=== PATIENT | male | born 1955 | race Caucasian/White ===

== ENCOUNTER 2017-11-18 07:41 | Emergency (ER) | payer BC, MEDICARE ==
[2017-11-18] MEDS ORDERED: methylPREDNISolone 125 MG* 2 ML VIAL IV ONE (07:56)
[2017-11-18] MEDS ORDERED: Albuterol/Ipratropium NEB.SOL* Albuterol 2.5 MG/Ipratropium 0.5 MG 3 ML INH PRN (07:56)
[2017-11-18] MEDS ORDERED: Albuterol/Ipratropium NEB.SOL* Albuterol 2.5 MG/Ipratropium 0.5 MG 3 ML ONE (08:14)
[2017-11-18 08:20] LABS: ABS Basophils 0.1 10^3/ul (0-0.2); ABS Eosinophils 0.1 10^3/ul (0-0.6); ABS Monocytes 0.7 10^3/ul (0-0.8); ABS Neutrophils 6.8 10^3/ul (1.5-7.7); ABS Nucleated RBC 0 10^3/ul; Eosinophil % 1.4 % (0-6); Hematocrit 43 % (42-52); Hemoglobin 14.1 g/dl (14.0-18.0); Lymphocyte % 11.9 % (25-47); Mean Corpuscular HGB Conc 33 g/dl (31-36); Mean Corpuscular Hemoglobin 28 pg (27-31); Mean Corpuscular Volume 86 fL (80-94); Nucleated Red Blood Cells % 0; Platelet Count 253 10^3/ul (150-450); Red Blood Count 4.98 10^6/ul (4.0-5.4); Red Cell Distribution Width 14 % (10.5-15); White Blood Count 8.7 10^3/ul (3.5-10.8)
[2017-11-18 08:24] LABS: INR 0.88 (0.77-1.02)
[2017-11-18 08:35] LABS: EGFR Non-African American 92.9 (>60)
--- NOTE | 2017-11-18 09:45 | RAD ---
Indication: Shortness of breath. Single frontal view of the chest performed at 0825 hours was reviewed. Comparison is made with previous exam dated July 20, 2015. No mediastinal shift is noted. Heart is of normal size and configuration. Lung aponte demonstrates right mid lung atelectasis in left midlung atelectasis. IMPRESSION: NO ACTIVE CARDIOPULMONARY DISEASE IS NOTED.
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
[2017-11-18 11:22] VITALS: BP 143/84
== END 2017-11-18 13:30 | disposition home or self-care (01) ==
LOC: ED 07:41
DX: J44.1 Chronic obstructive pulmonary disease with (acute) exacerbation (principal); E11.9 Type 2 diabetes mellitus without complications; K21.9 Gastro-esophageal reflux disease without esophagitis; Z87.891 Personal history of nicotine dependence
CPT/HCPCS: 36415; 71045; 80053; 82550; 82553; 82803; 83605; 83880; 84484; 85025; 85610; 86140; 87040; 93005; 96374; 99284; A9270-GY; J2930

== ENCOUNTER 2018-07-21 12:47 | Observation (INO) | payer BC, MEDICARE ==
[2018-07-21] MEDS ORDERED: methylPREDNISolone 125 MG* 2 ML VIAL IV ONE (13:09)
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
[2018-07-21 13:32] LABS: ABS Basophils 0.1 10^3/ul (0-0.2); ABS Eosinophils 0.2 10^3/ul (0-0.6); ABS Lymphocytes 1.8 10^3/ul (1.0-4.8); ABS Monocytes 1.1 10^3/ul (0-0.8); ABS Neutrophils 9.3 10^3/ul (1.5-7.7); ABS Nucleated RBC 0 10^3/ul; Eosinophil % 1.3 %; Hematocrit 46 % (42-52); Hemoglobin 14.8 g/dl (14.0-18.0); Lymphocyte % 14.2 %; Mean Corpuscular HGB Conc 32 g/dl (31-36); Mean Corpuscular Hemoglobin 28 pg (27-31); Mean Corpuscular Volume 86 fL (80-94); Mean Platelet Volume 8.1 fL (7.4-10.4); Nucleated Red Blood Cells % 0.1; Platelet Count 283 10^3/ul (150-450); Red Blood Count 5.34 10^6/ul (4.00-5.40); Red Cell Distribution Width 15 % (10.5-15); White Blood Count 12.4 10^3/ul (3.5-10.8)
[2018-07-21 14:04] LABS: Albumin 4.3 g/dL (3.2-5.2); Albumin/Globulin Ratio 1.2 (1-3); BUN/Creatinine Ratio 11.9 (8-20); Calcium 9.5 mg/dL (8.6-10.3); EGFR African American 90.6 (>60); EGFR Non-African American 74.9 (>60); Globulin 3.7 g/dL (2-4); Potassium 3.7 mmol/L (3.5-5.0); Total Bilirubin 0.6 mg/dL (0.2-1.0)
[2018-07-21] MEDS: Albuterol 2.5 MG/3 ML NEB.SOL* (0.083%) INH SCH ×3 (14:38→15:38)
[2018-07-21] MEDS ORDERED: cefTRIAXone(*) 1 GM in NS 0.9% 50 ML* 50 ML IVPB ONE (16:36)
[2018-07-21] MEDS ORDERED: Azithromycin TAB* 250 MG PO ONE (16:36)
[2018-07-21] MEDS ORDERED: Dextrose 50% Syringe 50 ML* 25 GM/50 ML SYRINGE IV PUSH PRN (17:09)
[2018-07-21] MEDS ORDERED: Albuterol 2.5 MG/3 ML NEB.SOL* (0.083%) INH PRN (17:09)
[2018-07-21] MEDS ORDERED: NS 0.9% 1000 ML** 1,000 ML IV SCH (17:15)
[2018-07-21] MEDS ORDERED: NS 0.9% 1000 ML** 1,000 ML IV ONE (17:19)
[2018-07-21] MEDS ORDERED: Cefepime 2 GM in Dextrose(*) 2 GM/50 ML BAG IV SCH (18:00)
[2018-07-21] MEDS ORDERED: Azithromycin IV(*) 500 MG in NS 0.9% 250 ML* 250 ML IVPB SCH (18:00)
[2018-07-21] MEDS ORDERED: predniSONE TAB* 20 MG PO SCH (18:00)
[2018-07-21 18:30] LABS: Influenza A Molecular NEGATIVE (Negative); Influenza B Molecular NEGATIVE (Negative)
[2018-07-21 18:38] LABS: Activated Partial Thrombo Time 28.4 seconds (26.0-36.3); INR 1.09 (0.77-1.02)
[2018-07-21 18:50] LABS: EGFR African American 104.8 (>60); EGFR Non-African American 86.6 (>60)
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
[2018-07-21] MEDS: predniSONE TAB* 20 MG PO SCH (20:24)
[2018-07-21] MEDS: Heparin VIAL(*) 5000 UNITS/ML VIAL (FIVE THOUSAND) SUBCUT SCH (20:26)
[2018-07-21] MEDS: Mometasone/Formoter 200/5 MDI INH SCH ×2 (21:07→21:25)
[2018-07-21] MEDS: Cefepime 2 GM in Dextrose(*) 2 GM/50 ML BAG IV SCH (21:26)
[2018-07-21 22:39] LABS: Urine Appearance Clear; Urine Bilirubin Negative (Negative); Urine Blood Negative (Negative); Urine Color Straw; Urine Glucose 3+(>=500 mg/dL) (Negative); Urine Ketones 1+ (Negative); Urine Nitrite Negative (Negative); Urine Protein Negative (Negative); Urine Specific Gravity 1.021 (1.010-1.030); Urine Urobilinogen Negative (Negative)
[2018-07-21] MEDS: Albuterol/Ipratropium NEB.SOL* Albuterol 2.5 MG/Ipratropium 0.5 MG 3 ML INH SCH (23:01)
[2018-07-22] MEDS: Albuterol/Ipratropium NEB.SOL* Albuterol 2.5 MG/Ipratropium 0.5 MG 3 ML INH SCH (03:45)
[2018-07-22] MEDS: Heparin VIAL(*) 5000 UNITS/ML VIAL (FIVE THOUSAND) SUBCUT SCH (04:01)
[2018-07-22 06:19] LABS: ABS Basophils 0 10^3/ul (0-0.2); ABS Eosinophils 0 10^3/ul (0-0.6); ABS Lymphocytes 0.8 10^3/ul (1.0-4.8); ABS Monocytes 0.3 10^3/ul (0-0.8); ABS Neutrophils 7.8 10^3/ul (1.5-7.7); ABS Nucleated RBC 0 10^3/ul; Eosinophil % 0 %; Hematocrit 38 % (42-52); Hemoglobin 12.7 g/dl (14.0-18.0); Lymphocyte % 8.8 %; Mean Corpuscular HGB Conc 33 g/dl (31-36); Mean Corpuscular Hemoglobin 28 pg (27-31); Mean Corpuscular Volume 85 fL (80-94); Mean Platelet Volume 7.7 fL (7.4-10.4); Nucleated Red Blood Cells % 0; Platelet Count 243 10^3/ul (150-450); Red Blood Count 4.51 10^6/ul (4.00-5.40); Red Cell Distribution Width 15 % (10.5-15); White Blood Count 8.9 10^3/ul (3.5-10.8)
[2018-07-22 06:26] LABS: INR 1.08 (0.77-1.02)
[2018-07-22 06:37] LABS: Calcium 8.5 mg/dL (8.6-10.3); EGFR African American 118.5 (>60)
[2018-07-22] MEDS: Mometasone/Formoter 200/5 MDI INH SCH (08:23)
[2018-07-22] MEDS: Cefepime 2 GM in Dextrose(*) 2 GM/50 ML BAG IV SCH (08:51)
[2018-07-22] MEDS: predniSONE TAB* 20 MG PO SCH (08:52)
[2018-07-22] MEDS: Insulin LISPRO* 1 UNITS UNIT SUBCUT SCH ×2 (08:52→12:15)
[2018-07-22] MEDS ORDERED: Azithromycin IV(*) 500 MG in NS 0.9% 250 ML* 250 ML IVPB SCH (09:00)
[2018-07-22] MEDS ORDERED: Pantoprazole TAB * 40 MG TAB PO SCH (09:00)
[2018-07-22 11:44] VITALS: BP 141/63
--- NOTE | 2018-07-22 13:53 | DS ---
CC: Dr. Jean Stewart; Dr. Viri Messer DATE OF ADMISSION: 07/21/2018. DATE OF DISCHARGE: 07/22/2018. PRINCIPAL DIAGNOSIS: COPD exacerbation. SECONDARY DIAGNOSES: 1. COPD on 3 liters chronically. 2. History of alpha-1 antitrypsin deficiency. 3. GERD. 4. Diabetes. 5. History of recurrent pulmonary pseudomonas infection. 6. Hypertension. MEDICATIONS: New medications prescribed at discharge: 1. Augmentin 875 mg p.o. b.i.d. for 7 days. 2. Prednisone taper over 12 days. Remaining medications are unchanged as follows: 1. Omeprazole 20 mg p.o. daily. 2. Albuterol nebs q.i.d. as needed. 3. Glipizide 5 mg p.o. daily. 4. Losartan 50 mg p.o. daily. 5. Metformin 1,000 mg p.o. b.i.d. 6. Lasix 20 mg p.o. daily. 7. Advair one puff inhaled b.i.d. 8. Spiriva one cap inhaled daily. 9. Prolastin 1,000 mg IV weekly. HOSPITAL COURSE: This is a 62-year-old male with a past medical history of COPD with alpha-1 antitrypsin deficiency on 3 liters chronically who presented to the emergency room with acute onset of shortness of breath. The patient states he was having worsening productive cough with increased shortness of breath when he acutely began gasping for air on the day of admission, grabbed his oxygen and his sat machine was measuring at 83 percent. He asked his family to bring him in to the emergency room for further evaluation. On admission, the patient had a white count of 12.4. His flu was negative. His pneumococcal antigen and legionella antigen were negative. He has a low grade temperature of 99.1 and his chest x-ray on admission read findings consistent with emphysema. On admission, the patient was started on IV fluids. We was given Solu- Medrol. He was continued on Azithromycin and Ceftriaxone. On the day of discharge, the patient states he feels great. He feels like he is back to his baseline. He has been ambulating, tolerating p.o. He still has a productive cough which we will obtain a sputum sample for. 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 Hensley, was alternating antibiotics every month where he has been on Ciprofloxacin for a month which he is currently taking, he just started it yesterday the and then he rotates to Clarithromycin and then he rotates to Amoxicillin. He has since then plugged in with Dr. Messer who recommended that he stop this antibiotic regimen. He did and he felt worse , so he went back on it. The patient is scheduled to see Dr. Messer as an outpatient scheduled for August. I discussed that we discussed with Dr. Messer the monthly antibiotic regimen does not make sense to prevent recurrent pulmonary infections, specifically against pseudomonas. I am going to get a sputum sample prior to his discharge, but will send him home on Augmentin b.i.d. for a total of seven days and continue him on a Prednisone taper. We discussed following up with Dr. Messer sooner if his symptoms worsen, but recommended that he stop his monthly antibiotic medications. The patient is agreeable to this. His is going to pick him up and he will go home under the care of his . Follow up: Sputum Culture PHYSICAL EXAMINATION: Vitals on discharge: Temperature 97.3, pulse rate 90, respiratory rate 14, oxygen saturation 98 percent on three liters which is his baseline, blood pressure 134/75. Respiratory exam: Diminished breath sounds, no wheezes, rhonchi, or rales, no increased work of breathing. The patient is to increase his activity as tolerated and as mentioned to return to the emergency room if he has worsening shortness of breath or hypoxia. PATIENT TIME: Greater than 45 minutes were spent on this discharge summary, more than half that time was spent in direct patient contact. [id number]/[facility] #: [id number] [place]
== END 2018-07-22 13:56 | disposition home or self-care (01) ==
LOC: ED 12:47 → INTOOBSV 17:05 → MED 17:05
PROVIDERS: ADMIT Internal Medicine; ATTEND Pediatrics
DX: J44.1 Chronic obstructive pulmonary disease with (acute) exacerbation (principal); K21.9 Gastro-esophageal reflux disease without esophagitis; E11.9 Type 2 diabetes mellitus without complications; I10 Essential (primary) hypertension; B96.5 Pseudomonas (aeruginosa) (mallei) (pseudomallei) as the cause of diseases classified elsewhere; Z87.891 Personal history of nicotine dependence
CPT/HCPCS: 36415; 71046; 80048; 80053; 81003; 82565; 83605; 85025; 85610; 85730; 87040; 87070; 87077; 87186; 87205; 87899; 93005; 94640; 96365; 96366; 96372; 96375; 99283; A9270-GY; J0456; J0692; J0696; J1644; J2930; J7512

== ENCOUNTER 2019-02-14 09:52 | Emergency (ER) | payer BC, MEDICARE ==
--- OUTSIDE RECORDS SUMMARY | 2019-02-14 10:07 | XMS REPORT | Continuity of Care Document ---
:1955 External Reference #:[id number] Author Name Valentine Thomas Care Team Providers Name Role Phone Tia Wen MD Care Team Information Sales Officer Unavailable Jean Stewart MD Primary Care Physician Unavailable Payers Date Identification Numbers Payment Provider Subscriber Policy Number: [id number] [facility] Patricio Underwood PayID: [id number] [address] [address] [place] [address] Effective: 2016 Policy Number: [id number] 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 Tobacco Use Start: Unknown Former Cigarette Smoker Not quite 1 ppd, 35 End: Unknown 1 Pack Daily years Smoking Status Reviewed: 02/05/19 Former Cigarette Smoker Not quite 1 ppd, 35 1 Pack Daily years ETOH Use Drinks Alcoholic Beverages Rarely Tobacco Use Start: Unknown Patient is a former End: Unknown smoker Recreational Drug Use Denies Drug Use Exercise Type/Frequency Exercises sporadically Exercise Type/Frequency Walks daily Sometimes short, sometimes long walks Allergies, Adverse Reactions, Alerts Active Allergies Reaction Severity Comments Date Latex 12/30/2017 Medications Active Medications SIG Qnty Indications Ordering Date Provider Anoro Ellipta 1 inhalation daily 3units Viri Messer, 08/25/2018 62.5-25mcg/Inh Aerosol Albuterol Sulfate inhale q4hr as 270ml Viri Messer, 02/10/2018 needed sob (2.5mg/3ML) 0.083% Nebulizer Oxygen please use o2 at 1units J44.9 Viri Messer, 01/21/2018 Misc 2l/min during MD exertion, pls provide pt with portable o2 concentrator Nebusal 1 unit twice daily 240ml J44.9 Viri Messer, 12/30/2017 3% Nebulizer Atorvastatin Calcium EstebanasBrannon, 20mg Tablets Furosemide 1 by mouth every day Unknown 20mg Tablets Ventolin HFA 2 puffs by mouth 54gm Viri Messer, four times a day as 108(90Base) mcg/Act needed Aerosol Prolastin-C 60mg per kg infusion Unknown 1000mg weekly Solution Rec Omeprazole 20 mg. 1 by mouth Gui, every day MD Viri Metformin HCL take one tablet by Gui, 1000mg mouth twice a day MD Viri Tablets History Medications Losartan Potassium Take One Tablet Unknown - 50mg By Mouth Every 02/04/2019 Tablets Day Glipizide ER Take One Tablet Unknown - 5mg Tablets ER By Mouth Every 08/10/2018 24HR Day Advair Diskus inhale one dose 60units Viri Messer, - 500-50mcg/Dose by mouth twice MD 02/04/2019 Aerosol daily Spiriva Respimat 1 puff one time Unknown - per day 02/04/2019 Ciprofloxacin HCL Take One Tablet Unknown - 750mg By Mouth one 01/27/2018 Tablets time per Day Clarithromycin ER Take One Tablet Unknown - 500mg By Mouth Every 01/27/2018 Tablets ER 24HR Day Amoxicillin/Clavulanate Take One Tablet Unknown - Potassium By Mouth Twice A 08/10/2018 875-125mg Tablets Day Albuterol Sulfate As needed Unknown - 02/10/2018 Vital Signs Date Vital Result Comment 02/05/2019 1:21pm Height 66 inches 5'6" Weight 172.50 lb Heart Rate 100 /min BP Systolic Sitting 126 mmHg Lue regular cuff BP Diastolic Sitting 74 mmHg Lue regular cuff Respiratory Rate 16 /min O2 % BldC Oximetry 96 % 3LPM BMI (Body Mass Index) 27.8 kg/m2 08/11/2018 1:34pm Height 66 inches 5'6" Weight 188.00 lb Heart Rate 100 /min BP Systolic Sitting 142 mmHg Lue regular cuff BP Diastolic Sitting 80 mmHg Lue regular cuff Respiratory Rate 16 /min O2 % BldC Oximetry 96 % 3LPM BMI (Body Mass Index) 30.3 kg/m2 02/10/2018 1:38pm Height 66 inches 5'6" Weight 186.00 lb Heart Rate 108 /min BP Systolic Sitting 150 mmHg BP Diastolic Sitting 94 mmHg Respiratory Rate 16 /min O2 % BldC Oximetry 96 % on 3 lpm BMI (Body Mass Index) 30.0 kg/m2 12/30/2017 12:36pm Height 66 inches 5'6" Weight 183.25 lb Heart Rate 100 /min BP Systolic Sitting 126 mmHg Lue reg cuff BP Diastolic Sitting 88 mmHg Lue reg cuff Respiratory Rate 22 /min O2 % BldC Oximetry 96 % On Ra BMI (Body Mass Index) 29.6 kg/m2 Neck Circumference in inches 18.5 Results Test Date Facility Test Result H/L Range Note Inr/Protime [facility] Inr 1.09 High 0.77-1.[address] [place] [address] [phone] Laboratory test [facility] Partial Thrombo 28.4 seconds Normal 26.0-36.3 finding [address] [place] [address] [phone] Creatinine [facility] Creatinine 0.89 mg/dL Normal 0.67-1.[address] [place] [address] [phone] Egfr Non- 86.6 >60 Egfr 104.8 >60 1 Laboratory test 07/21/2018 [facility] Lactic Acid 1.9 mmol/L Normal 0.5-2.[address] [place] [address] [phone] Urinalysis 07/21/2018 [facility] Urine Color Straw Profile [address] [place], [place] [id number] [phone] Urine Appearance Clear Urine Specific [place] 1.021 Normal 1.010-1.030 Urine pH 5.0 Normal 5-9 Urine Urobilinogen Negative Negative Urine Ketones 1+ Abnormal Negative Urine Protein Negative Negative Urine Leukocytes Negative Negative Urine Blood Negative Negative Urine Nitrite Negative Negative Urine Bilirubin Negative Negative Urine Glucose 3+(>=500 mg/dL) Abnormal Negative Laboratory test 07/21/2018 [facility] Legionella SEE RESULT [address] [place] [address] [phone] Blood Culture SEE RESULT BELOW 4 Laboratory test 07/21/2018 [facility] Rapid Influenza SEE RESULT [address] [place] [address] [phone] 1 Because ethnic data is not always readily available, this report includes an eGFR for both -Americans and non- Americans. The National Kidney Disease Education Program (NKDEP) does not endorse the use of the MDRD equation for patients that are not between the ages of 18 and 70, are , have extremes of body size, muscle mass, or nutritional status, or are non- or non-. According to the National Kidney Foundation, irrespective of diagnosis, the stage of the disease is based on the level of kidney function: Stage Description GFR(mL/min/1.73 m(2)) 1 Kidney damage with normal or decreased GFR 90 2 Kidney damage with mild decrease in GFR 60-89 3 Moderate decrease in GFR 30-59 4 Severe decrease in GFR 15-29 5 Kidney failure <15 (or dialysis) 2 [facility] Severe Sepsis and Septic Shock Management Bundle Measure requires all lactic acids initially measuring >2.0 mmol/L be repeated. 3 SEE RESULT BELOW Name: DELFINO UNDERWOOD : [address]: Tia Wen MD Acct: [id number] Unit: [id number] AGE: 62 Location: [facility] 413- Re07/21/18 SEX: M Status: ADM IN SPEC: [id number] BECKA: 07/21/18 [facility] DR: Norm Huber NP REQ: [id number] RECD: 07/21/18 STATUS: BINH GAYTAN DR: Jean Odom MD _ SOURCE: URINE SPDESC: ORDERED: Legion Ur Ag, S.pneumo Ur Ag Procedure Result Reported Site Legionella Urine Antigen Final 07/21/18- 2301 ML Organism 1 Negative Legionella Antigen Antigen testing by enzyme immunoassay Strep. Pneumonia Urine Antigen Final 07/21/18- 2301 ML Organism 1 Negative S. pneumo Antigen Antigen testing by enzyme immunoassay * - [facility] . END OF REPORT DEPARTMENT OF PATHOLOGY, [address] [place] [address] Zackery Miranda M.D. Director [facility] # [id number] 4 SEE RESULT BELOW Name: DELFINO UNDERWOOD : [address]: Joy Ann DO Acct: [id number] Unit: [id number] AGE: 62 Location: [facility] 413-02 Re07/21/18 Dis: 07/22/18 SEX: M Status: DIS Daryl SPEC: [id number] BECKA: 07/21/18 [facility] DR: Norm Huber NP REQ: [id number] RECD: 07/21/18 STATUS: BINH GAYTAN DR: Jean Odom MD _ SOURCE: BLOOD,VENO SPDESC: ORDERED: Blood Cult Procedure Result Reported Site Aerobic Culture Bottle Final 07/26/18- 1823 ML No Growth Day 5 Anaerobic Culture Bottle Final 07/26/18- 1821 ML No Growth Day 5 * ML - [facility] . END OF REPORT DEPARTMENT OF PATHOLOGY, [address] [place] [address] Zackery Miranda M.D. Director [facility] # [id number] 5 SEE RESULT BELOW Name: DELFINO UNDERWOOD : [address]: Shashank Odom MD Acct: [id number] Unit: [id number] AGE: 62 Location: ED Re07/21/18 SEX: M Status: REG ER SPEC: [id number] BECKA: 07/21/[address]: Norm Huber NP REQ: [id number] RECD: 07/21/18 STATUS: BINH GAYTAN DR: Jean Odom MD _ SOURCE: JACEAna [facility]: ORDERED: Flu A B Request Procedure Result Reported Site Rapid Influenza A B Request Final 07/21/181814 ML Specimen received for Influenza A/B Molecular testing * ML - [facility] . END OF REPORT DEPARTMENT OF PATHOLOGY, [address] [place] [id number] Zackery Miranda M.D. Director [facility] # [id number] Procedures Date Code Description Status 01/28/2018 85464 Diffusing Capacity Completed 01/28/2018 43142 Plethysmography Determination Lung Volumes & Per Airway Completed Resist 01/28/2018 78939 Pulmonary Function><Bronchodil Completed 06/18/2012 80181 EKG, Interpretation Only Completed 08/16/2008 45416 ECHO Transthorasic Realtime 2D W Doppler & Color Flow Hosp Completed Encounters Type Date Location Provider Dx Diagnosis Office Visit 02/05/2019 [facility]ology [facility] Mag Tucker.9 Chronic obstructive 1:30p Sleep Services Of pulmonary disease, Candle Molder Hand unspecified R09.02 Hypoxemia E88.01 Jsqur-6-cghjucuozll deficiency Office Visit 08/11/2018 1:45p Pulmonology And Viri Kimble44.9 Chronic Sleep Services Of MD Gui obstructive [employer] pulmonary disease, unspecified R09.02 Hypoxemia E88.01 Kikqm-2-gmdflnbbpjd deficiency Office Visit 07/22/2018 11:28a [facility] Joy J44.1 Chronic Assoc,pc ChemaDO obstructive Hospitalists pulmonary disease w (acute) exacerbation Office Visit 07/21/2018 11:28a [facility] Dallin J44.1 Chronic Assoc,pc [place] obstructive Hospitalists N.P. pulmonary disease w (acute) exacerbation R09.02 Hypoxemia Office Visit 02/10/2018 2:00p Pulmonology And Ana SFanny J44.9 Chronic Sleep Services Of Angie Neves obstructive Candle M[employer] Hand pulmonary disease, unspecified E88.01 Blucs-6-wktwwvyekty deficiency R09.02 Hypoxemia Office Visit 12/30/2017 1:00p Pulmonology And Viri J44.9 Chronic Sleep Services Of MD Gui obstructive [employer]le M[employer] pulmonary disease, unspecified E88.01 Empwh-4-npgoguofgaz deficiency R09.02 Hypoxemia Z12.2 Encntr screen for malignant neoplasm of respiratory organs Office Visit 07/22/2015 2:19p [facility] Aan Curry J44.1 Chronic Assoc,pc Ana Neves.Taylor obstructive Hospitalists pulmonary disease w (acute) exacerbation E11.8 Type 2 diabetes mellitus with unspecified complications E88.01 Uyrsf-4-txzvwkxhrwi deficiency Office Visit 07/21/2015 2:18p [facility] Ana Curry J44.1 Chronic Assoc,brandee Neves N.P. obstructive Hospitalists pulmonary disease w (acute) exacerbation E11.8 Type 2 diabetes mellitus with unspecified complications E88.01 Bjgae-2-xlqtdisxchx deficiency Office Visit 07/20/2015 [facility] Dallin J44.1 Chronic 2:17p Assoc,brandee Huber N.P. obstructive Hospitalists pulmonary disease w (acute) exacerbation E11.8 Type 2 diabetes mellitus with unspecified complications E88.01 Vlxhw-4-rkvuocmbapo deficiency Office Visit 09/27/2012 [facility] Real 277.6 Circulating 10:24a Assoc,brandee Malhotra M.D. Enzyme Deficiency Hospitalists Other 492.8 Emphysema Other 466.0 Bronchitis Acute 300.00 Anxiety State Unspec [facility] Other Assoc,brandee Ray M.D. 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 Obstructive Hospitalists Chronic W/Acute Exacerbation 273.4 Eluuu-8-Xaqkpgdtmaz Def Office Visit 06/15/2012 2:[facility]p [facility], 491.21 Bronchitis Assoc,pc N.P. Obstructive Hospitalists Chronic W/Acute Exacerbation 273.4 Xqvkg-0-Txslghlxhop Def Plan of Treatment Future Appointment(s):08/17/2019 3:30 pm - Viri Messer MD at [facility]02/05/2019 - Viri Messer MDJ44.9 Chronic obstructive pulmonary disease, unspecifiedFollow up:6 months , PFTs fjckbW16.02 EodmmtuleB05.01 Rtszq-0-omobfirhcnt deficiency
--- OUTSIDE RECORDS SUMMARY | 2019-02-14 10:07 | XMS REPORT | Summary of Care ---
:1955 Author Organization [facility] Address [address] [place] [address] Care Team Providers Name Role Phone Jean Stewart MD Primary Care Provider Reason for Visit Reason Comments Nausea Nausea , abdominal pain,weight loss,and extreme fatigue. Diabetes Follow up. Last A1C 8.2 on 12/30/2018 Encounter Details Date Type Department Care Team Description 02/03/2019 Office Visit [facility] Jean Stewart Unexplained weight loss (Primary Dx); Andi Singh MD Epigastric pain; [address] [facility] Essential hypertension; [place], [place] [id number] [place] [id number] Bronchiectasis without complication ([facility]); [phone] Panlobular emphysema ([facility]); [phone] Controlled type 2 diabetes mellitus without complication, without long-term current use of insulin ([facility]) (Fax) Allergies Active Allergy Reactions Severity Noted Date Comments Latex Hives 02/23/2010 documented as of this encounter (statuses as of 02/03/2019) Medications Medication Sig Dispensed Refills Start End Date Status Date proteinase by Intravenous 0 Active (PROLASTIN-C) 1000 route EVERY MG Intravenous SATURDAY. Recon Soln Erythromycin 2 % 1 Appl by Apply 60 g 4 Active Apply externally externally 7 Gel route EVERY BEDTIME. Apply to face at bedtime Tadalafil (CIALIS) Take 1 Tab by 3 Tab 5 Active 20 MG Oral Tab mouth NEEDED 7 (sex). albuterol 3 mL by 180 mL 5 Active (PROVENTIL, Inhalation-SVN 7 VENTOLIN) (2.5 route EVERY MG/3ML) 0.083% FOUR HOURS Inhalation Nebu NEEDED SolnIndications: (shortness of Bronchiectasis breath). without complication (HCC) metFORMIN HCL 1000 Take 1 Tab by 180 Tab 1 Active MG Oral Tab mouth TWICE 9 DAILY. Omeprazole delayed Take 20 mg by 90 Cap 3 Active rel cap 20 MG Oral mouth DAILY. 9 CAPSULE DELAYED RELEASE atorvastatin Take 1 Tab by 90 Tab 3 Active (LIPITOR) 20 MG mouth DAILY. 9 Oral Tab lisinopril Take 1 Tab by 90 Tab 0 12/25/19 Active (PRINIVIL, ZESTRIL) mouth DAILY. 9 20 20 MG Oral Tab Take 1 tablet daily. umeclidinium-VILANT Take 1 INHL by 60 Each 4 Active WINSOME (ANORO inhalation 9 ELLIPTA) 62.5-25 DAILY. MCG/INH Inhalation AEROSOL POWDER, BREATH ACTIVATED tiotropium (SPIRIVA Take 1 INHL by 90 Cap 3 02/04/20 Discontinued HANDIHALER) 18 MCG inhalation 8 19 (Provider Inhalation Cap DAILY. Discontinued) fluticasone-salmete Take 1 INHL by 180 Each 3 02/04/20 Discontinued rol diskus (ADVAIR inhalation 8 19 DISKUS) 500-50 TWICE DAILY. MCG/DOSE Inhalation AEROSOL POWDER, BREATH ACTIVATED losartan (COZAAR) Take 1 Tab by 90 Tab 5 02/04/20 Discontinued 50 MG Oral Tab mouth DAILY. 9 19 (Provider Discontinued) furosemide (LASIX) Take 1 Tab by 90 Tab 3 02/04/20 Discontinued 20 MG Oral Tab mouth DAILY. 9 19 (Provider Discontinued) documented as of this encounter (statuses as of 02/03/2019) Active Problems Problem Noted Date Essential hypertension 11/14/2017 Bronchiectasis without complication 06/08/2016 Overview: [facility] Attention- Marcelina Airvo at 30LPM via [employer] Adult Cannula (p) [phone] (f) [phone] Pseudomonas respiratory infection 09/01/2015 COLD (chronic obstructive lung disease) 09/01/2015 Controlled type 2 diabetes mellitus without complication, without 11/21/2011 long-term current use of insulin Pseudomonas aeruginosa infection 02/15/2011 Chronic bronchitis 01/04/2011 COPD (chronic obstructive pulmonary disease) 10/17/2007 Overview: Xourprl-Ztltzt-vbbzk re-sent/faxed on 10/07/12 3LPM Gurdeepsoledad- evaluating for portability 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 10/17/2007 documented as of this encounter (statuses as of 02/03/2019) Resolved Problems Problem Noted Date Resolved Date Tobacco abuse 10/17/2007 01/04/2011 documented as of this encounter (statuses as of 02/03/2019) Immunizations Name Administration Dates Next Due Influenza (IM) Preservative Free 04/23/2018, 04/18/2016, 04/29/2015, 04/08/2013, 04/03/2012, 04/26/2009, 05/17/2008 Influenza (IM) W/Pres 04/18/2017, 04/19/2014 Influenza Vaccine Whole 05/12/2007 Influenza Virus Vaccine Pres Free 6-35 04/20/2011, 04/08/2010 Months PNEUMOCOCCAL POLYSACCHARIDE VACCINE 03/01/2007 Pneumococcal Conjugate Vaccine 12/09/2012 Pneumococcal Conjugate(13 Valent) 03/16/2016 Solu Medrol (125 mg) 09/25/2012, 03/31/2009, 03/18/2009, 10/20/2007 Tetanus Vaccine 06/07/2001 documented as of this encounter Social History Tobacco Use Types Packs/Day Years Used Date Former Smoker Cigarettes 1 37 Quit: 08/29/2007 Smokeless Tobacco: Never Used Alcohol Use Drinks/Week oz/Week Comments No 0 Standard drinks or equivalent 0.0 Sex Assigned at Date Recorded Not on file Job Start Date Occupation Industry Not on file Not on file Not on file Travel History Travel Start Travel End No recent travel history available. documented as of this encounter Last Filed Vital Signs Vital Sign Reading Time Taken Comments Blood Pressure 128/70 02/03/2019 3:43 PM EDT Pulse - - Temperature 37.3 02/03/2019 3:43 PM EDT C (99.1 F) Respiratory Rate - - Oxygen Saturation - - Inhaled Oxygen Concentration - - Weight 78 kg (172 lb) 02/03/2019 3:43 PM EDT Height 167.6 cm (5' 6") 02/03/2019 3:43 PM EDT Body Mass Index 27.76 02/03/2019 3:43 PM EDT documented in this encounter Patient Instructions Patient InstructionsJean Stewart MD - 02/03/2019 3:40 PM EDTStay off furosemide Continue metformin Diabetes mellitus blood test 3 months For stomach pain pain and weight loss I recommend a consultation here at [facility] with our gastro-intestinal and liver specialist MD, Dr Radha Elias or her assistant merchandiser Skye Li [employer]. You cancall [phone] to make an appointment for thisElectronically signed by Jean Stewart MD at 2018 4:06 PM EDT documented in this encounter Progress Notes Jean Stewart MD - 02/03/2019 3:40 PM EDT PATIENT: uQan Underwood : 1955 DATE OF SERVICE: 02/03/2019 CHIEF COMPLAINT: Chief Complaint Patient presents with Nausea Nausea , abdominal pain,weight loss,and extreme fatigue. Diabetes Follow up. Last A1C 8.2 on 12/30/2018 Subjective HISTORY OF PRESENT ILLNESS: Quan Underwood is a 63-y.o. male. HPI 3-4 months of vague upper abdomen pain it is dull ache and some reduced appetite no nausea and vomitting no change in bowel movements No gastro-intestinal bleed symptoms He has lost weight since last year Wt Readings from Last 3 Encounters: 02/03/19 172 lb (78 kg) 09/26/18 183 lb (83 kg) 08/08/18 178 lb (80.7 kg) he is using proton pump inhibitor denies gastroesophageal reflux disease symptoms Denies diabetes mellitus related symptoms Lab Results Component Value Date GLYCO 8.2 (H) 12/29/2018 recent finger stick are better in the 110-130 range premeal no hypoglycemia Patient Active Problem List Diagnosis COPD (chronic obstructive pulmonary disease) (HCC) 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-3-eufaratiwzi deficiency (HCC) Chronic bronchitis (HCC) Pseudomonas aeruginosa infection Controlled type 2 diabetes mellitus without complication, without long- term current use of insulin (HCC) Pseudomonas respiratory infection COLD (chronic obstructive lung disease) (HCC) Bronchiectasis without complication (HCC) Essential hypertension Family History Problem Relation Age of Onset Undiagnosed/Untreated Disorder Mother Alpha-1 Deficiency Current Outpatient Medications Medication Sig albuterol (PROVENTIL, VENTOLIN) (2.5 MG/3ML) 0.083% Inhalation Nebu Soln 3 mL by Inhalation-SVN route EVERY FOUR HOURS NEEDED (shortness of breath). atorvastatin (LIPITOR) 20 MG Oral Tab Take 1 Tab by mouth DAILY. Erythromycin 2 % Apply externally Gel 1 Appl by Apply externally route EVERY BEDTIME. Apply to face at bedtime lisinopril (PRINIVIL, ZESTRIL) 20 MG Oral Tab Take 1 Tab by mouth DAILY. Take 1 tablet daily. metFORMIN HCL 1000 MG Oral Tab Take 1 Tab by mouth TWICE DAILY. Omeprazole delayed rel cap 20 MG Oral CAPSULE DELAYED RELEASE Take 20 mg by mouth DAILY. proteinase (PROLASTIN-C) 1000 MG Intravenous Recon Soln by Intravenous route EVERY SATURDAY. Tadalafil (CIALIS) 20 MG Oral Tab Take 1 Tab by mouth NEEDED (sex). umeclidinium-VILANTEROL (ANORO ELLIPTA) 62.5-25 MCG/INH Inhalation AEROSOL POWDER, BREATH ACTIVATED Take 1 INHL by inhalation DAILY. No current facility-administered medications for this visit. Allergies Allergen Reactions Latex Hives Social History Socioeconomic History Marital status: Spouse name: Not on file Number of children: Not on file Years of education: Not on file Highest education level: Not on file Occupational History Not on file Social Needs Financial resource strain: Not on file Food insecurity: Worry: Not on file Inability: Not on file Transportation needs: Medical: Not on file Non-medical: Not on file Tobacco Use Smoking status: Former Smoker Packs/day: 1.00 Years: 37.00 Pack years: 37.00 Types: Cigarettes Last attempt to quit: 08/29/2007 Years since quittin.4 Smokeless tobacco: Never Used Substance and Sexual Activity Alcohol use: No Alcohol/week: 0.0 standard drinks Drug use: No Sexual activity: Not on file Lifestyle Physical activity: Days per week: Not on file Minutes per session: Not on file Stress: Not on file Relationships Social connections: Talks on phone: Not on file Gets together: Not on file Attends judaism service: Not on file Active member of club or organization: Not on file Attends meetings of clubs or organizations: Not on file Relationship status: Not on file Intimate partner violence: Fear of current or ex partner: Not on file Emotionally abused: Not on file Physically abused: Not on file Forced sexual activity: Not on file Other Topics Concern Back Care Not Asked Bike Helmet Not Asked Blood Transfusions No Caffeine Concern Not Asked Exercise No Hobby Hazards Not Asked International Travel Not Asked Service Not Asked Occupational Exposure Not Asked Seat Belt Not Asked Self-Exams Not Asked Sleep Concern Not Asked Special Diet Not Asked Stress Concern Not Asked Weight Concern Not Asked Social History Narrative No recent travel history ROS increased cough he sees pulmonary MD Blanco later tyhis week No cardiovascular symptoms Objective PHYSICAL EXAM: VITALS: BP 128/70 | Temp 99.1 F (37.3 C) | Ht 5' 6" (1.676 m) | Wt 172 lb (78 kg) | BMI27.76 kg/m Body mass index is 27.76 kg/m. Physical Exam Chest: clear to auscultation, no wheezes, rales or rhonchi, symmetric air entry, decreased breath sounds throughout. Abdominal exam: tenderness noted epigastric no guarding no rebound tenderness noted bowel sounds normal scars from previous incisions no hepatomegaly no Splenomegaly no no bladder distension noted no abdominal bruits no pulsatile masses. ASSESSMENT / IMPRESSION: ICD-9-CM ICD-10-CM 1. Unexplained weight loss gastro-intestinal consult 783.21 R63.4 2. Epigastric pain gastro-intestinal consult continue proton pump inhibitor 789.06 R10.13 3. Essential hypertension at goal continue current medications 401.9 I10 4. Bronchiectasis without complication (HCC) 494.0 J47.9 5. Panlobular emphysema (HCC) 492.8 J43.1 6. Controlled type 2 diabetes mellitus without complication, without long-term current use of insulin (HCC) goal hemoglobin A1C 8% continue current medications repeat in three months 250.00 E11.9 Patient Instructions Stay off furosemide Continue metformin Diabetes mellitus blood test 3 months For stomach pain pain and weight loss I recommend a consultation here at [facility] with our gastro-intestinal and liver specialist , Dr Rahda Elias or her assistant merchandiser Skye Li NP. You cancall [phone] to make an appointment for this Jean Stewart MD 02/03/2019 17:15 documented in this encounter Plan of Treatment Date Type Specialty Care Team Description 03/03/2019 Office Visit Gastroenterology Skye Li, [employer] [address] [address] [phone] Health Maintenance Due Date Last Done Comments MEDICARE ANNUAL WELLNESS 1955 VISIT DEPRESSION SCREENING 1967 ZOSTER IMMUNIZATION SERIES 12/30/2005 (1 of 2) Diabetic Eye Exam 01/09/2017 01/10/2016 (Previously completed) FOOT EXAM 11/14/2018 11/14/2017, 11/14/2017, 11/14/2017, Additional history exists INFLUENZA VACCINE (#1) 2019 04/23/2018, 04/18/2017, 04/18/2016, Additional history exists HEMOGLOBIN A1C 03/31/2019 12/29/2018, 09/16/2018, 05/16/2018, Additional history exists LIPID DISORDER SCREENING 12/30/2019 12/29/2018, 10/31/2018, 09/16/2018, Additional history exists PNEUMOCOCCAL 0-64 YRS Completed 03/16/2016, 12/09/2012, 03/01/2007 HPV IMMUNIZATION SERIES Aged Out No longer eligible based on patient's age to complete this topic MENINGOCOCCAL VACCINE IMM Aged Out No longer eligible based on patient's age to complete this topic documented as of this encounter Goals Goal Patient Goal Associated Recent Patient-Stated? Author Type Problems Progress Blood Pressure Blood Pressure 128/70 No Terry, < 140/90 (02/03/2019 Jean Singh, 3:43 PM EDT) Note: This is an individualized treatment (blood pressure) goal for Quan Underwood: Displayed above (on the left) is your goal for blood pressure control. Your most recent blood pressure is also shown above, on the right. You should try to achieve blood pressures that are lower than your goal listed above (on the left). Glycohemoglobin A1c < 7.0 Diabetes 8.2 (12/29/2018 12:09 PM Jean Powell, EDT) Note: This is an individualized treatment (diabetes control, HgbA1C) goal for Quan Underwood: Displayed above is your progress towards your HgbA1C goal. Your goal is shown above (on the left); your most recent HgbA1C is shown on the right. Note that lower numbers are better. Weight loss vs. 18 mo Lifestyle 16 (02/03/2019 3:43 PM Jean Powell MD max (lbs) >= 10 EDT) Note: This is an individualized lifestyle goal for Quan Underwood: Your body mass index (BMI) is more than 30. You should lose weight. A reasonable starting goal is to lose 10 pounds. Displayed above is how many pounds you have lost thus far towards your 10 pound weight loss goal. Keep immunizations current Lifestyle Jean Powell MD Note: This is an individualized lifestyle goal for Quan Underwood: Please be sure to keep up-to-date on recommended immunizations. For example, this would include a yearly influenza vaccine. Immunization status can be seen by looking at the Health Maintenance sections of your [employer], Plan of Care, and any After Visit Summaries. Take all prescribed medications as Self-management Jean Powell MD directed Note: This is an individualized self-management goal for Quan Underwood: Please take all prescribed medications as directed. 1. Do not skip doses. If you cannot afford your medications, talk with your doctor. 2. Use a pill reminder system such as a pill box if needed. Your pharmacist can help you with this. 3. Contact your Pharmacy 5 days before your medication runs out. If you cannot take your medications for any reasons, talk with your doctor. 4. Please bring all of your medication bottles and inhalers (or a list of all your medications/inhalers) with you to every visit. Potential barriers to meeting all of your care plan goals will continue to be addressed on an ongoing basis. documented as of this encounter Results Not on filedocumented in this encounter Visit Diagnoses Diagnosis Unexplained weight loss - Primary Loss of weight Epigastric pain Abdominal pain, epigastric Essential hypertension Unspecified essential hypertension Bronchiectasis without complication (HCC) Bronchiectasis without acute exacerbation Panlobular emphysema (HCC) Other emphysema Controlled type 2 diabetes mellitus without complication, without long-term current use of insulin (HCC) documented in this encounter Insurance Payer Benefit Plan / Subscriber ID Effective Dates Phone Address Type Group ASIYA CRAWFORD xxxxxxxxxxxx 2018-Present Asiya MORIN MEDICARE MEDICARE PART A & xxxxxxxxxxx 2006-Present Medicare B Guarantor Name Account Type Relation to Date of Phone Billing Patient Address Quan Underwood Personal/Family 1955 [address] (Home) [place], [place] [phone] [id number] (Work) documented as of this encounter
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
[2019-02-14 11:02] LABS: ABS Basophils 0.1 10^3/ul (0-0.2); ABS Eosinophils 0.2 10^3/ul (0-0.6); ABS Lymphocytes 1.5 10^3/ul (1.0-4.8); ABS Neutrophils 9.1 10^3/ul (1.5-7.7); Eosinophil % 1.4 %; Hematocrit 41 % (42-52); Hemoglobin 13.9 g/dL (14.0-18.0); Lymphocyte % 12.5 %; Mean Corpuscular HGB Conc 34 g/dL (31-36); Mean Corpuscular Hemoglobin 28 pg (27-31); Mean Corpuscular Volume 84 fL (80-94); Mean Platelet Volume 7.9 fL (7.4-10.4); Platelet Count 303 10^3/uL (150-450); Red Blood Count 4.97 10^6 /uL (4.18-5.48); Red Cell Distribution Width 14 % (10-15); White Blood Count 11.9 10^3/uL (3.5-10.8)
[2019-02-14 11:19] LABS: Albumin 4.3 g/dL (3.2-5.2); Albumin/Globulin Ratio 1.5 (1-3); C Reactive Protein 12.07 mg/L (<8.01); Calcium 9.3 mg/dL (8.6-10.3); EGFR African American 105.8 (>60); EGFR Non-African American 87.5 (>60); Globulin 2.8 g/dL (2-4); Potassium 3.9 mmol/L (3.5-5.0); Total Bilirubin 0.4 mg/dL (0.2-1.0); Total Protein 7.1 g/dL (6.4-8.9)
[2019-02-14] MEDS ORDERED: NS 0.9% 1000 ML** 1,000 ML IV ONE (12:15)
[2019-02-14 15:21] VITALS: BP 138/95
== END 2019-02-14 15:20 | disposition home or self-care (01) ==
LOC: ED 09:52
DX: R10.9 Unspecified abdominal pain (principal); E11.9 Type 2 diabetes mellitus without complications; J44.9 Chronic obstructive pulmonary disease, unspecified; K21.9 Gastro-esophageal reflux disease without esophagitis; R16.0 Hepatomegaly, not elsewhere classified; K76.0 Fatty (change of) liver, not elsewhere classified; K57.30 Diverticulosis of large intestine without perforation or abscess without bleeding; K40.90 Unilateral inguinal hernia, without obstruction or gangrene, not specified as recurrent; N40.0 Benign prostatic hyperplasia without lower urinary tract symptoms; I70.0 Atherosclerosis of aorta; Z79.899 Other long term (current) drug therapy; Z91.040 Latex allergy status; Z87.891 Personal history of nicotine dependence
CPT/HCPCS: 36415; 74176; 76705; 80053; 83605; 83690; 85025; 86140; 99284

== ENCOUNTER 2019-09-12 11:58 | Observation (INO) | payer BC, MEDICARE ==
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
--- OUTSIDE RECORDS SUMMARY | 2019-09-12 12:05 | XMS REPORT | Continuity of Care Document ---
:1955 External Reference #:[id number] Author Name Katerin Laureano NP (transmitted by agent of provider Corina Childs) Address [address], [address] [place] [address] Care Team Providers Name Role Phone Tia Wen MD - Internal Care Team Information Government Service Executive [phone] Medicine Jean Stewart MD - Internal Care Team Information Government Service Executive [phone] Medicine Problems Description No Information Available Social History Type Date Description Comments Sex Unknown Tobacco Use Start: Unknown Former Cigarette Smoker Not quite 1 ppd, 35 End: Unknown 1 Pack Daily years Smoking Status Reviewed: 09/07/19 Former Cigarette Smoker Not quite 1 ppd, [...] 240ml J44.9 Viri Messer, 12/30/2017 3% Nebulizer Metformin HCL take one tablet by Gui, 1000mg mouth twice a day MD Viri Tablets Omeprazole 20 mg. 1 by mouth Gui, every day MD Viri Prolastin-C 60mg per kg infusion Unknown 1000mg weekly Solution Rec Ventolin HFA 2 puffs by mouth 54gm Viri Messer, four times a day as 108(90Base) mcg/Act needed Aerosol Furosemide 1 by mouth every day Unknown 20mg Tablets Atorvastatin Calcium Brannon Spencer, 20mg Tablets Immunizations Description No Information Available Vital Signs Date Vital Result Comment 09/07/2019 2:34pm Height 66 inches 5'6" Weight 155.00 lb Heart Rate 105 /min BP Systolic Sitting 128 mmHg BP Diastolic Sitting 80 mmHg O2 % BldC Oximetry 93 % BMI (Body Mass Index) 25.0 kg/m2 02/05/2019 1:21pm Height 66 inches 5'6" Weight 172.50 lb Heart Rate 100 /min BP Systolic Sitting 126 mmHg Lue regular cuff BP Diastolic Sitting 74 mmHg Lue regular cuff Respiratory Rate 16 /min O2 % BldC Oximetry 96 % 3LPM BMI (Body Mass Index) 27.8 kg/m2 Results Description No Information Available Procedures Date Code Description Status 08/17/2019 00577 Diffusing Capacity Completed 08/17/2019 50400 Plethysmography Determination Lung Volumes & Per Airway Completed Resist 08/17/2019 38836 Pulmonary Function><Bronchodil Completed Medical Devices Description No Information Available Encounters Type Date Location Provider Dx Diagnosis Office Visit 09/07/2019 Pulmonology And Katerin J44.9 Chronic 3:[facility]p [facility] La[facility]ano obstructive Cleaner Greaser pulmonary disease, unspecified R09.02 Hypoxemia 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 Qvqrf-[id number]-[id number] deficiency Assessments Date Code Description Provider 09/07/2019 J44.9 Chronic obstructive pulmonary disease, Katerin Laureano NP unspecified 09/07/2019 R09.02 Hypoxemia Katerin Laureano NP 09/07/2019 E88.01 Efkjc-2-fucuxfmidur deficiency Katerin Laureano NP 08/17/2019 J44.9 Chronic obstructive pulmonary disease, Viri Messer MD unspecified Plan of Treatment Future Appointment(s):03/09/2020 1:00 pm - Katerin Laureano, CLAM SHOVEL OPERATOR at [facility]/07/2019 - Katerin Laureano, NPJ44.9 Chronic obstructive pulmonary disease, unspecifiedFollow up:6 months, PFTs kyttnX30.02 RvvcibhsvD02.01 Xahix-7-oenghkigivs deficiency Functional Status Description No Information Available Mental Status Description No Information Available Referrals Description No Information Available
--- OUTSIDE RECORDS SUMMARY | 2019-09-12 12:05 | XMS REPORT | Summary of Care ---
:1955 Author Organization [facility] Address [address] [address] Care Team Providers Name Role Phone Jean Stewart Primary Care Provider Reason for Referral MRI/CAT/PET Scan (Routine) Status Reason Specialty Diagnoses / Procedures Referred By Referred To Contact Contact Closed Radiology Diagnoses Primary adenocarcinoma of esophagus with metastasis (HCC) [facility] Procedures CT CHEST ABDOMEN PELVIS WITH IV CONTRAST SYMONE Magana [address] [address] [address] [address] Phone: Reason for Visit MRI/CAT/PET Scan (Routine) Status Reason Specialty Diagnoses / Procedures Referred By Referred To Contact Contact Closed Radiology Diagnoses Primary adenocarcinoma of esophagus with metastasis (HCC) [facility] Procedures CT CHEST ABDOMEN PELVIS WITH IV CONTRAST Izzy PA-C [address] [address] [address] [place] [address] Phone: Encounter Details Date Type Department Care Team Description 08/25/2019 Hospital Encounter [facility] CT Outpatient [address] [address] Allergies Active Allergy Reactions Severity Noted Date Comments Latex Hives 02/23/2010 documented as of this encounter (statuses as of 08/27/2019) Medications Medication Sig Dispensed Refills Start Date End Date Status proteinase by Intravenous 0 Active (PROLASTIN-C) 1000 MG route EVERY Intravenous Recon Soln SATURDAY. albuterol (PROVENTIL, 3 mL by 180 mL 5 04/18/2017 Active VENTOLIN) (2.5 MG/3ML) Inhalation-SVN 0.083% Inhalation Nebu route EVERY FOUR SolnIndications: HOURS NEEDED Bronchiectasis without (shortness of complication (HCC) breath). atorvastatin (LIPITOR) Take 1 Tab by 90 Tab 3 10/31/2018 Active 20 MG Oral Tab mouth DAILY. umeclidinium-VILANTERO Take 1 INHL by 60 Each 4 02/03/2019 Active L (ANORO ELLIPTA) inhalation DAILY. 62.5-25 MCG/INH Inhalation AEROSOL POWDER, BREATH ACTIVATED metFORMIN HCL 1000 MG TAKE 1 TABLET 180 Tab 4 02/13/2019 Active Oral Tab TWICE A DAY lisinopril (PRINIVIL, Take 1 Tab by 90 Tab 3 03/09/2019 Active ZESTRIL) 20 MG Oral mouth DAILY. Tab pantoprazole Take 1 Tab by 30 Tab 2 03/24/2019 Active (PROTONIX) 40 MG Oral mouth DAILY. Tab EC albuterol HFA Take 2 Puffs by 0 Active (VENTOLIN HFA) 108 (90 inhalation EVERY Base) MCG/ACT FOUR HOURS Inhalation Aero Soln NEEDED. sucralfate (CARAFATE) Take 1 Tab by 120 Tab 0 04/21/2019 Active 1 GM Oral Tab mouth EVERY SIX HOURS. ondansetron (ZOFRAN) 4 Take 4 mg by 42 Tab 0 06/08/2019 Active MG Oral mouth EVERY EIGHT TabIndications: HOURS NEEDED Primary adenocarcinoma (As needed for of esophagus with nausea or metastasis (HCC) vomiting). azithromycin Take 2 pills on 6 Tab 0 08/04/2019 Active (ZITHROMAX Z-OPLA) 250 the first day and MG Oral Tab 1 pill each day for 4 days amoxicillin-clavulanic Take 1 Tab by 20 Tab 0 08/18/2019 08/28/2019 Active acid (AUGMENTIN) mouth TWICE DAILY 875-125 MG Oral Tab for 10 days. prochlorperazine Take 1 Tab by 90 Tab 3 08/18/2019 Active (COMPAZINE) 10 MG Oral mouth EVERY SIX Tab HOURS NEEDED (nausea). documented as of this encounter (statuses as of 08/27/2019) Active Problems Problem Noted Date 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 05/18/2019 Esophageal mass 05/04/2019 Essential hypertension 11/14/2017 Bronchiectasis without complication 06/08/2016 Overview: SleepRserg Hewitt Airvo at 30LPM via Optiflo Adult Cannula (p) [phone] (f) [phone] Pseudomonas respiratory infection 09/01/2015 COLD (chronic obstructive lung disease) 09/01/2015 Controlled type 2 diabetes mellitus without complication, without 11/21/2011 long-term current use of insulin Pseudomonas aeruginosa infection 02/15/2011 Chronic bronchitis 01/04/2011 COPD (chronic obstructive pulmonary disease) 10/17/2007 Overview: Epwmdgi-Jdhams-jzrfp re-sent/faxed on 10/07/12 3LPM [facility]- evaluating for portability 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 10/17/2007 documented as of this encounter (statuses as of 08/27/2019) Resolved Problems Problem Noted Date Resolved Date Tobacco abuse 10/17/2007 01/04/2011 documented as of this encounter (statuses as of 08/27/2019) Immunizations Name Administration Dates Next Due Influenza (IM) Preservative Free 04/21/2019, 04/23/2018, 04/18/2016, 04/29/2015, 04/08/2013, 04/03/2012, 04/26/2009, 05/17/2008 Influenza (IM) W/Pres 04/18/2017, 04/19/2014 Influenza Vaccine Whole 05/12/2007 Influenza Virus Vaccine Pres Free 6-35 04/20/2011, 04/08/2010 Months PNEUMOCOCCAL POLYSACCHARIDE VACCINE 03/01/2007 Pneumococcal Conjugate Vaccine 12/09/2012 Pneumococcal Conjugate(13 Valent) 03/16/2016 Tetanus Vaccine 06/07/2001 documented as of this encounter Social History Tobacco Use Types Packs/Day Years Used Date Former Smoker Cigarettes 1 37 Quit: 08/29/2007 Smokeless Tobacco: Never Used Alcohol Use Drinks/Week oz/Week Comments No 0 Standard drinks or equivalent 0.0 rare beer Sex Assigned at Date Recorded Not on file documented as of this encounter Last Filed Vital Signs Not on filedocumented in this encounter Plan of Treatment Date Type Specialty Care Team Description 09/01/2019 Appointment Infusion Therapy 09/01/2019 Office Visit Hematology and Oncology Germania Billings MD [address] [address] 09/01/2019 Appointment Infusion Therapy Name Type Priority Associated Diagnoses Date/Time CT CHEST ABDOMEN Imaging Routine Primary adenocarcinoma of 08/25/2019 2: 38 PM PELVIS WITH IV esophagus with metastasis EST CONTRAST (HCC) Name Type Priority Associated Diagnoses Order Schedule CT CHEST ABDOMEN Imaging Routine Primary adenocarcinoma of 1 Occurrences starting PELVIS WITH IV esophagus with metastasis 08/25/2019 until CONTRAST (HCC) 08/25/2019 Health Maintenance Due Date Last Done Comments MEDICARE ANNUAL WELLNESS 1955 VISIT HEPATITIS A IMMUNIZATION 12[birth year]30/1956 SERIES (1 of 2 - Risk 2-dose series) DTaP/Tdap/Td Vaccines (1 - 12/30/1966 Tdap) DEPRESSION SCREENING 1967 ZOSTER IMMUNIZATION SERIES 12/30/2005 (1 of 2) LUNG CANCER SCREENING 12/30/2010 02/28/2010 PNEUMOCOCCAL 0-64 YRS (3 of 05/11/2016 03/16/2016, 12/09/2012, 3 - PPSV23) 03/01/2007 Diabetic Eye Exam 01/09/2017 01/10/2016 (Previously completed) FOOT EXAM 11/14/2018 11/14/2017, 11/14/2017, 11/14/2017, Additional history exists HEMOGLOBIN A1C 03/31/2019 12/29/2018, 09/16/2018, 05/16/2018, Additional history exists LIPID DISORDER SCREENING 12/30/2019 12/29/2018, 10/31/2018, 09/16/2018, Additional history exists INFLUENZA VACCINE Completed 04/21/2019, 04/23/2018, 04/18/2017, Additional history exists HPV IMMUNIZATION SERIES Aged Out No longer eligible based on patient's age to complete this topic MENINGOCOCCAL VACCINE IMM Aged Out No longer eligible based on patient's age to complete this topic documented as of this encounter Goals Goal Patient Goal Associated Recent Patient-Stated? Author Type Problems Progress Blood Pressure Blood Pressure 137/74 No [place], < 140/90 (08/18/2019 Jean Singh, 9:00 AM EST) Note: This is an individualized treatment (blood [...] 7.0 Diabetes 8.2 (12/29/2018 12:09 PM Jean Powell EDTNicholas MILLER Note: This is an individualized treatment (diabetes control, HgbA1C) goal for Quan Underwood: Displayed above is your progress towards your HgbA1C goal. Your goal is shown above (on the left); your most recent HgbA1C is shown on the right. Note that lower numbers are better. Weight loss vs. 18 mo Lifestyle 26.7 (08/18/2019 9:00 AM Jean Powell MD max (lbs) >= 10 EST) Note: This is an individualized lifestyle goal [...] filedocumented in this encounter Visit Diagnoses Diagnosis Primary adenocarcinoma of esophagus with metastasis (HCC) documented in this encounter Administered Medications Medication Order MAR Action Action Date Dose Rate Site iohexol (OMNIPAQUE) 350 MG/ML Push 08/25/2019 2:30 PM EST 85 mL injectable solution 85 mL 85 mL, Intravenous, NOW, 1 dose, 08/25/19 at 1430 documented in this encounter Insurance Payer Benefit Plan / Subscriber ID Effective Dates Phone Address Type Group ASIYA MURDOCK YUEUS CRAWFORD [id number] 2018-Present Asiya [employer]TUNE PPO MEDICARE MEDICARE PART A & [id number] 2006-Present Medicare B Guarantor Name Account Type Relation to Date of Phone Billing Patient Address Quan Underwood Personal/Family 1955 [address] (Home) [place], [place] [phone] (Work) documented as of this encounter
--- OUTSIDE RECORDS SUMMARY | 2019-09-12 12:05 | XMS REPORT | Summary of Care ---
:1955 Author Organization [facility] Address [address] [address] Care Team Providers Name Role Phone ShackelfordJean Samantha Primary Care Provider Encounter Details Date Type Department Care Team Description 08/06/2019 Hospital Encounter [facility] Infusion Center Outpatient [address] [id number] Allergies Active Allergy Reactions Severity Noted Date Comments Latex Hives 02/23/2010 documented as of this encounter (statuses as of 08/08/2019) Medications Medication Sig Dispensed Refills Start Date [...] ondansetron (ZOFRAN) 4 Take 4 mg by mouth 42 Tab 0 06/08/2019 Active MG Oral EVERY EIGHT HOURS TabIndications: NEEDED (As Primary adenocarcinoma needed for nausea of esophagus with or vomiting). 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 05/18/2019 Esophageal mass 05/04/2019 Essential hypertension 11/14/2017 Bronchiectasis without complication 06/08/2016 Overview: SleepRserg Forbes- Marcelina Airvo at 30LPM via Optiflo Adult Cannula (p) [phone] (f) [phone] Pseudomonas respiratory infection 09/01/2015 COLD (chronic obstructive lung disease) 09/01/2015 Controlled type 2 diabetes mellitus without complication, without 11/21/2011 long-term current use of insulin Pseudomonas aeruginosa infection 02/15/2011 Chronic bronchitis 01/04/2011 COPD (chronic obstructive pulmonary disease) 10/17/2007 Overview: Xlgciue-Omtbeu-aoban re-sent/faxed on 10/07/12 3LPM [facility]- evaluating for portability Emphysema due to [id number] deficiency 10/17/2007 documented as of this encounter (statuses as of 08/08/2019) Resolved Problems Problem Noted Date Resolved Date Tobacco abuse 10/17/2007 01/04/2011 documented as of this encounter (statuses as of 08/08/2019) Immunizations Name Administration Dates Next Due Influenza [...] Treatment Date Type Specialty Care Team Description 08/18/2019 Appointment Infusion Therapy 08/25/2019 Appointment Infusion Therapy 08/25/2019 Appointment Radiology 09/01/2019 Appointment Infusion Therapy 09/01/2019 Office Visit Hematology and Oncology Germania Billings MD [address] [address] [phone] 09/01/2019 Appointment Infusion Therapy Health Maintenance Due Date Last Done Comments [...] Type Problems Progress Blood Pressure Blood Pressure 112/72 No Terry, < 140/90 (08/04/2019 Jean Singh, 2:07 PM EST) Note: This is an individualized treatment [...] better. Weight loss vs. 18 mo Lifestyle 27.6 (08/04/2019 10:14 AM Jean Powell MD max (lbs) >= [...] Results Not on filedocumented in this encounter Administered Medications Medication Order MAR Action Action Date Dose Rate Site heparin lock flush injection Given 08/06/2019 11:59 AM EST 500 Units Port 100-500 Units 100-500 Units, Intravenous Push, PRN, Starting Hannah 08/06/19 at 1138, Until 08/07/19 at 0606, CVC maintenance, Flush catheter per policy, If used as flush, continue until access discontinued per RN policy., normal saline (flush) injection Given 08/06/2019 11:59 AM EST 10 mL Port 10 mL, Intravenous Push, PRN, Starting Hannah 08/06/19 at 1138, Until 08/07/19 at 0606, Flush catheter per policy documented in this encounter Insurance Payer Benefit Plan / Subscriber ID Effective Dates Phone Address Type Group GUCCI BCBS GUCCIUS CRAWFORD xxxxxxxxxxxx 2018-Present Guccius FORTUNE PPO MEDICARE MEDICARE PART A & xxxxxxxxxxx 2006-Present Medicare B Guarantor Name Account Type Relation to Date of Phone Billing Patient Address KjQuan Personal/Family [address] (Home) [place], [place] [phone] (Work) documented as of this encounter
--- OUTSIDE RECORDS SUMMARY | 2019-09-12 12:05 | XMS REPORT | Summary of Care ---
:1955 Author Organization [facility] Address [address] [address] Care Team Providers Name Role Phone Jean Stewart Primary Care Provider Reason for Visit (Routine) Status Reason Specialty Diagnoses / Referred By Referred To Procedures Contact Contact Authorized Infusion Therapy Diagnoses Malignant neoplasm of esophagus, unspecified [place], Rph Infusion Procedures FL OXALIPLATIN FL LEUCOVORIN CALCIUM INJECTION FL FLUOROURACIL INJECTION MD [facility] [address] [address] [address] [address] [address] Phone: [phone] Encounter Details Date Type Department Care Team Description 09/01/2019 Hospital Encounter [facility] Infusion Center Outpatient [address] [phone] Allergies Active Allergy Reactions Severity Noted Date Comments Latex Hives 02/23/2010 documented as of this encounter (statuses as of 09/03/2019) Medications Medication Sig Dispensed Refills Start Date [...] Active 20 MG Oral Tab mouth DAILY. umeclidinium-VILANTEROL Take 1 INHL by 60 Each 4 02/03/2019 Active (ANORO ELLIPTA) 62.5-25 inhalation DAILY. MCG/INH Inhalation AEROSOL POWDER, BREATH ACTIVATED metFORMIN HCL 1000 MG TAKE 1 TABLET 180 Tab 4 02/13/2019 Active Oral Tab TWICE A DAY lisinopril (PRINIVIL, Take 1 Tab by 90 Tab 3 03/09/2019 Active ZESTRIL) 20 MG Oral Tab mouth DAILY. pantoprazole (PROTONIX) Take 1 Tab by 30 Tab 2 03/24/2019 Active 40 MG Oral Tab EC mouth DAILY. albuterol HFA (VENTOLIN Take 2 Puffs by 0 Active HFA) 108 (90 Base) inhalation EVERY MCG/ACT Inhalation Aero FOUR HOURS Soln NEEDED. sucralfate (CARAFATE) 1 Take 1 Tab by 120 Tab 0 04/21/2019 Active GM Oral Tab mouth EVERY SIX HOURS. ondansetron (ZOFRAN) 4 Take 4 mg by 42 Tab 0 06/08/2019 Active MG Oral TabIndications: mouth EVERY EIGHT Primary adenocarcinoma HOURS NEEDED of esophagus with (As needed for metastasis (HCC) nausea or vomiting). azithromycin (ZITHROMAX Take 2 pills on 6 Tab 0 08/04/2019 Active Z-OPAL) 250 MG Oral Tab the first day and 1 pill each day for 4 days prochlorperazine Take 1 Tab by 90 Tab 3 08/18/2019 Active (COMPAZINE) 10 MG Oral mouth EVERY SIX Tab HOURS NEEDED (nausea). 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 05/18/2019 Esophageal mass 05/04/2019 Essential hypertension 11/14/2017 Bronchiectasis without complication 06/08/2016 Overview: SleepRserg Forbes- Marcelina Airvo at 30LPM via Optiflo Adult Cannula (p) [phone] (f) [phone] Pseudomonas respiratory infection 09/01/2015 COLD (chronic obstructive lung disease) 09/01/2015 Controlled type 2 diabetes mellitus without complication, without 11/21/2011 long-term current use of insulin Pseudomonas aeruginosa infection 02/15/2011 Chronic bronchitis 01/04/2011 COPD (chronic obstructive pulmonary disease) 10/17/2007 Overview: Lfpucza-Rmhrxt-kyune re-sent/faxed on 10/07/12 3LPM [facility]- evaluating for portability 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 Please call the Hematology/Oncology Clinic at [phone] if you need to reschedule an appointment,talk to a provider, or request a prescription refill. If you are having uncontrolled symptoms and need to speak with a provider after 5pm, weekends, holidays please call [phone] and ask to speak with the oncologist fire suppression captain. Reminders: Drink lots of fluids Call if any fever over 100.4 GREAT NEWS TODAY!!! Please call anytime with any questions or concerns. documented in this encounter Plan of Treatment Date Type Specialty Care Team Description 09/03/2019 Appointment Infusion Therapy 09/15/2019 Appointment Infusion Therapy 09/29/2019 Appointment Infusion Therapy 09/29/2019 Office Visit Hematology and Oncology Jared Blankenship PA-C [address] [address] [phone] 09/29/2019 Appointment Infusion Therapy Health Maintenance Due Date [...] Type Problems Progress Blood Pressure Blood Pressure 142/75 No Terry, < 140/90 (09/01/2019 Jean Singh, 8:50 AM EST) Note: This is an individualized [...] < 7.0 Diabetes 8.2 (12/29/2018 12:09 PM Vernell Stewart, Jean Singh, EDT) Note: This is an individualized treatment (diabetes control, HgbA1C) goal for Quan Underwood: Displayed above is your progress towards your HgbA1C goal. Your goal is shown above (on the left); your most recent HgbA1C is shown on the right. Note that lower numbers are better. Weight loss vs. 18 mo Lifestyle 24.6 (09/01/2019 8:50 AM Jean Powell MD max (lbs) >= [...] MAR Action Action Date Dose Rate Site dexamethasone (DECADRON) tablet 12 Given 09/01/2019 10:09 AM EST 12 mg mg 12 mg, Oral, Q2 WEEKS, 2 doses, First dose on Sat09/01/19 at 0950, Last dose on Sat09/15/19 at 0950 dextrose 5% (flush) injection Given 09/01/2019 11:57 AM EST 10 mL 10 mL, Intravenous Push, Q2 WEEKS, 2 doses, First dose on Sat09/01/19 at 0950, Last dose on Sat09/15/19 at 0950, Administer 5 mL PRIOR to oxaliplatin to flush the tubing. Administer the remaining 5 mL AFTER oxaliplatin to flush the tubing., Given 09/01/2019 10:26 AM EST 10 mL fluorouracil (ADRUCIL, EFUDE, New Bag 09/01/2019 11:59 AM EST 720 mg 999 mL /hr FLUOROPLEX) 720 mg in normal saline IV mixture 720 mg, Intravenous, at 999 mL/hr, Q2 WEEKS, 2 doses, First dose on Sat09/01/19 at 0950, Last dose on Sat09/15/19 at 0950 fluorouracil (ADRUCIL, EFUDE, FLUOROPLEX) Given 09/01/2019 12:09 PM EST 4, 320 mg CADD IV infusion 4,320 mg 4,320 mg, Intravenous, CONTINUOUS, Starting Sat09/01/19 at 0950, Until Sat09/02/19 at 0606, QS to 100 mL. Set pump to deliver 52 mL per 24 hours., granisetron (KYTRIL) tablet 2 mg Given 09/01/2019 10:08 AM EST 2 mg 2 mg, Oral, Q2 WEEKS, 2 doses, First dose on Sat09/01/19 at 0950, Last dose on Sat09/15/19 at 0950 leucovorin (FoliNIC ACID,CALCIUM New Bag 09/01/2019 10:26 AM EST 700 mg 201.2 mL/hr FOLINATE) 700 mg in dextrose 5% IV mixture 700 mg, Intravenous, at 201.2 mL/hr, Q2 WEEKS, 2 doses, First dose on Sat09/01/19 at 0950, Last dose on Sat09/15/19 at 0950, Ordered dose = 720 mg, rounded to 700 mg per policy, oxaliplatin (ELOXATIN) 150 mg in New Bag 09/01/2019 10:27 AM EST 150 mg 197.6 mL/hr dextrose 5% IV mixture 150 mg, Intravenous, at 197.6 mL/hr, Q2 WEEKS, 2 doses, First dose on Sat09/01/19 at 0950, Last dose on Sat09/15/19 at 0950, Run concurrently with LV. Ordered dose = 153 mg, rounded to 150 mg per policy, documented in this encounter Insurance Payer Benefit Plan / Subscriber ID Effective Dates Phone Address Type Group YUEUS HINESBS MELVI YVETTE [id number] 2018-Present Melvi FORTUNE PPO MEDICARE MEDICARE PART A & [id number] 2006-Present Medicare B Guarantor Name Account Type Relation to Date of Phone Billing Patient Address Quan Underwood Personal/Family 1955 [address] (Home) [place], [place] [phone] (Work) documented as of this encounter
--- OUTSIDE RECORDS SUMMARY | 2019-09-12 12:05 | XMS REPORT | Summary of Care ---
:1955 Author Organization [facility] Address [address] [address] Care Team Providers Name Role Phone MidlandJean Samantha Primary Care Provider Encounter Details Date Type Department Care Team Description 08/20/2019 Hospital Encounter [facility] Infusion Center Outpatient [address] [phone] Allergies Active Allergy Reactions Severity Noted Date Comments Latex Hives 02/23/2010 documented as of this encounter (statuses as of 08/22/2019) Medications Medication Sig Dispensed Refills Start Date [...] as of this encounter (statuses as of 08/22/2019) Active Problems Problem Noted Date 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 05/18/2019 Esophageal mass 05/04/2019 Essential hypertension 11/14/2017 Bronchiectasis without complication 06/08/2016 Overview: Elijah Hewitt Airvo at 30LPM via Optiflo Adult Cannula (p) [phone] (f) [phone] Pseudomonas respiratory infection 09/01/2015 COLD (chronic obstructive lung disease) 09/01/2015 Controlled type 2 diabetes mellitus without complication, without 11/21/2011 long-term current use of insulin Pseudomonas aeruginosa infection 02/15/2011 Chronic bronchitis 01/04/2011 COPD (chronic obstructive pulmonary disease) 10/17/2007 Overview: Zcpuynj-Tfrlkf-rqztb re-sent/faxed on 10/07/12 3LPM [facility]- evaluating for portability Emphysema due to ujbqg-8-cfdzpqmpfnv deficiency 10/17/2007 documented as of this encounter (statuses as of 08/22/2019) Resolved Problems Problem Noted Date Resolved Date Tobacco abuse 10/17/2007 01/04/2011 documented as of this encounter (statuses as of 08/22/2019) Immunizations Name Administration Dates Next Due Influenza [...] Treatment Date Type Specialty Care Team Description 08/25/2019 Appointment Infusion Therapy 08/25/2019 Appointment Radiology 09/01/2019 Appointment Infusion Therapy 09/01/2019 Office Visit Hematology and Oncology Germania Billings MD [address] [address] 09/01/2019 Appointment Infusion Therapy Health Maintenance Due [...] Progress Blood Pressure Blood Pressure 137/74 No Terry, < 140/90 (08/18/2019 Jaen Singh, 9:00 AM EST) Note: This is [...] Rate Site heparin lock flush injection Given 08/20/2019 11:26 AM EST 500 Units Port 100-500 Units 100-500 Units, Intravenous Push, PRN, Starting Hannah 08/20/19 at 1120, Until Sat08/21/19 at 0606, CVC maintenance, Flush catheter per policy, If used as flush, continue until access discontinued per RN policy., normal saline (flush) injection Given 08/20/2019 11:26 AM EST 10 mL Port 10 mL, Intravenous Push, PRN, Starting Hannah 08/20/19 at 1120, Until 08/21/19 at 0606, Flush catheter per policy documented in this encounter Insurance Payer Benefit Plan / Subscriber ID Effective Dates Phone Address Type Group ASIYA HINESBS ASIYA CRAWFORD [id number] 2018-Present Asiya [employer]TUNE PPO MEDICARE MEDICARE PART A & [id number] 2006-Present Medicare B Guarantor Name Account Type Relation to Date of Phone Billing Patient Address KjQuan Murphy Personal/Family [address] (Home) [place], [place] [phone] (Work) documented as of this encounter
--- OUTSIDE RECORDS SUMMARY | 2019-09-12 12:05 | XMS REPORT | Summary of Care ---
:1955 Author Organization [facility] Address [address] [address] Care Team Providers Name Role Phone TerryJean Samantha Primary Care Provider Encounter Details Date Type Department Care Team Description 09/01/2019 Hospital Encounter [facility] Infusion Center Outpatient [address] [id number] Allergies Active Allergy Reactions Severity Noted Date [...] at 30LPM via [employer] Adult Cannula (p) [phone] (f) [phone] Pseudomonas respiratory infection 09/01/2015 COLD (chronic obstructive lung disease) 09/01/2015 Controlled type 2 diabetes mellitus without complication, without 11/21/2011 long-term current use of insulin Pseudomonas aeruginosa infection 02/15/2011 Chronic bronchitis 01/04/2011 COPD (chronic obstructive pulmonary disease) 10/17/2007 Overview: Acbghwj-Bnhofn-jbcyt re-sent/faxed on 10/07/12 3LPM [facility] [place]- evaluating for portability Emphysema due to fvhyv-1-vewdteiydvp deficiency 10/17/2007 documented as of this encounter [...] Oncology Jared Blankenship PA-C [address] [id number] [phone] 09/29/2019 Appointment Infusion Therapy Health Maintenance Due [...] individualized treatment (blood pressure) goal for [place]an [place]: Displayed above (on the left) is your [...] ongoing basis. documented as of this encounter Procedures Procedure Name Priority Date/Time Associated Diagnosis Comments CBC WITH DIFFERENTIAL STAT 09/01/2019 8:07 Primary adenocarcinoma Results for this AM EST of esophagus with procedure are in metastasis (HCC) the results section. COMPREHENSIVE STAT 09/01/2019 8:07 Primary adenocarcinoma Results for this METABOLIC PANEL AM EST of esophagus with procedure are in metastasis (HCC) the results section. PLATELET CHECK / Routine 09/01/2019 8:07 Primary adenocarcinoma REVIEW AM EST of esophagus with metastasis (HCC) documented in this encounter Results CBC WITH DIFFERENTIAL (09/01/2019 8:07 AM EST) WBC Count 5.28 4.23 - 9.07 K/uL [facility] RBC Count 4.41 4.30 - 5.89 M/UL [facility] Hemoglobin 12.7 (L) 13.7 - 17.5 g/dL [facility] Hematocrit 39.0 (L) 40.1 - 51.0 % [facility] MCV 88.4 79.0 - 92.2 FL [facility] MCH 28.8 25.7 - 32.2 PG [facility] MCHC 32.6 32.3 - 36.5 g/dL [facility] Platelet Count 99 (L) 163 - 337 K/uL [facility] MPV 10.2 9.4 - 12.4 FL [facility] RDW 17.6 (H) 11.6 - 14.4 % [facility] Neutrophil % 62.0 34.0 - 67.9 % [facility] Lymphocyte % 21.4 (L) 21.8 - 53.1 % [facility] Monocyte % 13.6 (H) 5.3 - 12.2 % [facility] Eosinophil % 1.7 0.8 - 7.0 % [facility] Basophil % 1.1 0.2 - 1.2 % [facility] nRBC % 0.0 0.0 - 0.2 % [facility] Neutrophil # 3.27 1.78 - 5.38 K/UL [facility] Lymphocyte # 1.13 (L) 1.32 - 3.57 K/UL [facility] Monocyte # 0.72 0.30 - 0.82 K/UL [facility] Eosinophil # 0.09 0.04 - 0.54 K/UL [facility] Basophil # 0.06 0.01 - 0.08 K/UL [facility] Immature Gran % 0.2 0.0 - 0.4 % [facility] Immature Gran # 0.01 0.00 - 0.03 K/uL [facility] NRBC # 0.00 0.00 - 0.12 K/uL [facility] Specimen Blood - Blood specimen (specimen) Performing Organization Address City/State/Zipcode Phone Number [facility] [address] [place] [address] COMPREHENSIVE METABOLIC PANEL (09/01/2019 8:07 AM EST) Sodium 140 134 - 145 mmol/L [facility] Potassium 4.0 3.5 - 5.1 mmol/L [facility] Chloride 104 98 - 107 mmol/L [facility] CO2 27 22 - 30 mmol/L [facility] Calcium 9.2 8.3 - 10.1 mg/dl [facility] Albumin 3.9 3.5 - 5.0 g/dl [facility] BUN 11 9 - 20 mg/dl [facility] Creatinine 0.6 (L) 0.8 - 1.5 mg/dl [facility] Glucose 217 (H) 70 - 99 mg/dl [facility] Total Protein 6.8 6.3 - 8.2 g/dl [facility] Total Bilirubin 0.4 0.0 - 1.1 MG/DL [facility] AST 33 17 - 59 U/L [facility] ALT 42 21 - 72 U/L [facility] Alkaline 126 40 - 150 U/L [facility] Phosphatase [facility] eGFR >60 See Interpretation [facility] Comment: Below ml/min/1.73ml GROUP Estimated GFR Interpretation: Sq LABORATORY Above 60ml/min/1.73m2 = Normal Renal Function 30-59 ml/min/1.73m2 = Stage 3 Chronic Kidney Disease 15-29 ml/min/1.73m2 = Stage 4 Chronic Kidney Disease Less than 15 ml/min/1.73m2 = Stage 5 Chronic Kidney Disease The GFR value is calculated using the Modification of Diet in Renal Disease ( MDRD) Study Equation which can be found at: https://www.kidney.org/content/ljfm-urrlg-zndrckdp BUN/Creatinine 18 6 - 22 RATIO [facility] LABORATORY Anion Gap 9 3 - 11 mmol/L [facility] A/G Ratio 1.3 0.8 - 2.0 ratio [facility] Specimen Blood - Blood specimen (specimen) Performing Organization Address City/[facility]/Zipcode Phone Number [facility] [address] [place] [address] PLATELET CHECK / REVIEW (09/01/2019 8:07 AM EST) Specimen Blood - Blood specimen (specimen) Performing Organization Address City/[facility] Phone Number [facility] [address] [phone] documented in this encounter Visit Diagnoses Diagnosis Primary adenocarcinoma of esophagus with metastasis (HCC) documented in this encounter Administered Medications Medication Order MAR Action Action Date Dose Rate Site normal saline (flush) injection Given 09/01/2019 8:08 AM EST 10 mL 10 mL, Intravenous Push, PRN, Starting 09/01/19 at 0759, Until 09/02/19 at 0606, Flush catheter per policy documented in this encounter Insurance Payer Benefit Plan / Subscriber ID Effective Dates Phone Address Type Group ASIYA CRAWFORD [id number] 2018-Present [employer]iya [employer] P[employer] MEDICARE MEDICARE PART A & [id number] 2006-Present Medicare B Guarantor Name Account Type Relation to Date of Phone Billing Patient Address Quan Underwood Personal/Family 1955 [address] (Home) [place], [place] [phone] [id number] (Work) documented as of this encounter
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
--- OUTSIDE RECORDS SUMMARY | 2019-09-12 12:05 | XMS REPORT | Summary of Care ---
:1955 Author Organization [facility] Address [address] [address] Care Team Providers Name Role Phone [place] Samantha Primary Care Provider Encounter Details Date Type Department Care Team Description 08/04/2019 Hospital Encounter [facility] Infusion Center Outpatient [address] [id number] Allergies Active Allergy Reactions Severity Noted Date Comments Latex Hives 02/23/2010 documented as of this encounter (statuses as of 08/06/2019) Medications Medication Sig Dispensed Refills Start Date [...] of esophagus with or vomiting). 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 05/18/2019 Esophageal mass 05/04/2019 Essential hypertension 11/14/2017 Bronchiectasis without complication 06/08/2016 Overview: GaryRserg Forbes- Marcelina Airvo at 30LPM via Optiflo Adult Cannula (p) [phone] (f) [phone] Pseudomonas respiratory infection 09/01/2015 COLD (chronic obstructive lung disease) 09/01/2015 Controlled type 2 diabetes mellitus without complication, without 11/21/2011 long-term current use of insulin Pseudomonas aeruginosa infection 02/15/2011 Chronic bronchitis 01/04/2011 COPD (chronic obstructive pulmonary disease) 10/17/2007 Overview: Rqhxsjz-Rplqzc-gpsuz re-sent/faxed on 10/07/12 3LPM [facility]- evaluating for portability 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 10/17/2007 documented as of this encounter (statuses as of 08/06/2019) Resolved Problems Problem Noted Date Resolved Date Tobacco abuse 10/17/2007 01/04/2011 documented as of this encounter (statuses as of 08/06/2019) Immunizations Name Administration Dates Next Due Influenza [...] Treatment Date Type Specialty Care Team Description 08/06/2019 Appointment Infusion Therapy 08/18/2019 Appointment Infusion Therapy 08/25/2019 Appointment Infusion Therapy 08/25/2019 Appointment Radiology 09/01/2019 Appointment Infusion Therapy 09/01/2019 Office Visit Hematology and Oncology Germania Billings MD [address] [address] [phone] 09/01/2019 Appointment Infusion Therapy Health Maintenance Due [...] Procedure Name Priority Date/Time Associated Diagnosis Comments PLATELET CHECK / Routine 08/04/2019 9:54 Primary adenocarcinoma REVIEW AM EST of esophagus with metastasis (HCC) CBC WITH DIFFERENTIAL STAT 08/04/2019 9:54 Primary adenocarcinoma Results for this AM EST of esophagus with procedure are in metastasis (HCC) the results section. COMPREHENSIVE STAT 08/04/2019 9:54 Primary adenocarcinoma Results for this METABOLIC PANEL AM EST of esophagus with procedure are in metastasis (HCC) the results section. documented in this encounter Results PLATELET CHECK / REVIEW (08/04/2019 9:54 AM EST) Specimen Blood - Blood specimen (specimen) Performing Organization Address City/State/Zipcode Phone Number [facility] [address] [place] [address] COMPREHENSIVE METABOLIC PANEL (08/04/2019 9:54 AM EST) Sodium 140 134 - 145 mmol/L [facility] Potassium 3.9 3.5 - 5.1 mmol/L [facility] Chloride 103 98 - 107 mmol/L [facility] CO2 30 22 - 30 mmol/L [facility] Calcium 9.2 8.3 - 10.1 mg/dl [facility] Albumin 4.1 3.5 - 5.0 g/dl [facility] BUN 9 9 - 20 mg/dl [facility] Creatinine 0.6 (L) 0.8 - 1.5 mg/dl [facility] Glucose 159 (H) 70 - 99 mg/dl [facility] Total Protein 6.9 6.3 - 8.2 g/dl [facility] Total Bilirubin 0.4 0.0 - 1.1 MG/DL [facility] AST 35 17 - 59 U/L [facility] ALT 45 21 - 72 U/L [facility] Alkaline 108 40 - 150 U/L [facility] Phosphatase [facility] eGFR >60 See Interpretation [facility] Comment: Below ml/min/1.73ml GROUP Estimated GFR Interpretation: LABORATORY Above 60ml/min/1.73m2 = Normal Renal Function 30-59 ml/min/1.73m2 = Stage 3 Chronic Kidney Disease 15-29 ml/min/1.73m2 = Stage 4 Chronic Kidney Disease Less than 15 ml/min/1.73m2 = Stage 5 Chronic Kidney Disease The GFR value is calculated using the Modification of Diet in Renal Disease ( MDRD) Study Equation which can be found at: https://www.kidney.org/content/ctxt-apcpq-sftsrvof BUN/Creatinine 15 6 - 22 RATIO [facility] Anion Gap 7 3 - 11 mmol/L [facility] A/G Ratio 1.5 0.8 - 2.0 ratio [facility] Specimen Blood - Blood specimen (specimen) Performing Organization Address City/State/Zipcode Phone Number [facility] [address] [place] [address] [phone] CBC WITH DIFFERENTIAL (08/04/2019 9:54 AM EST) WBC Count 6.96 4.23 - 9.07 K/uL [facility] RBC Count 4.66 4.30 - 5.89 M/UL [facility] Hemoglobin 13.0 (L) 13.7 - 17.5 g/dL [facility] Hematocrit 39.8 (L) 40.1 - 51.0 % [facility] MCV 85.4 79.0 - 92.2 FL [facility] MCH 27.9 25.7 - 32.2 PG [facility] MCHC 32.7 32.3 - 36.5 g/dL [facility] Platelet Count 125 (L) 163 - 337 K/uL [facility] MPV 9.6 9.4 - 12.4 FL [facility] RDW 17.7 (H) 11.6 - 14.4 % [facility] Neutrophil % 67.5 34.0 - 67.9 % [facility] Lymphocyte % 17.4 (L) 21.8 - 53.1 % [facility] Monocyte % 12.5 (H) 5.3 - 12.2 % [facility] Eosinophil % 1.3 0.8 - 7.0 % [facility] Basophil % 1.0 0.2 - 1.2 % [facility] nRBC % 0.0 0.0 - 0.2 % [facility] Neutrophil # 4.70 1.78 - 5.38 K/UL [facility] Lymphocyte # 1.21 (L) 1.32 - 3.57 K/UL [facility] Monocyte # 0.87 (H) 0.30 - 0.82 K/UL [facility] Eosinophil # 0.09 0.04 - 0.54 K/UL [facility] Basophil # 0.07 0.01 - 0.08 K/UL [facility] Immature Gran % 0.3 0.0 - 0.4 % [facility] Immature Gran # 0.02 0.00 - 0.03 K/uL [facility] NRBC # 0.00 0.00 - 0.12 K/uL [facility] Specimen Blood - Blood specimen (specimen) Performing Organization Address City/State/[facility] Phone Number [facility] [address] [place] [address] documented in this encounter Visit Diagnoses Diagnosis Primary adenocarcinoma of esophagus with metastasis (HCC) documented in this encounter Administered Medications Medication Order MAR Action Action Date Dose Rate Site normal saline (flush) injection Given 08/04/2019 9:56 AM EST 10 mL Port 10 mL, Intravenous Push, PRN, Starting Tu08/04/19 at 0955, Until Sat08/05/19 at 0605, Flush catheter per policy documented in this encounter Insurance Payer Benefit Plan / Subscriber ID Effective Dates Phone Address Type Group MEDICARE MEDICARE PART A & xxxxxxxxxxx 2006-Present Medicare B ASIYA CRAWFORD xxxxxxxxxxxx 2018-Present Asiya FORTUNE PPO Guarantor Name Account Type Relation to Date of Phone Billing Patient Address Quan Underwood Personal/Family [address] (Home) [place], [place] [phone] [id number] (Work) documented as of this encounter
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
--- OUTSIDE RECORDS SUMMARY | 2019-09-12 12:05 | XMS REPORT | Continuity of Care Document ---
:1955 External Reference #:[id number] Author Name Katerin Laureano NP Address [address], [address] [place] [address] Care Team Providers Name Role Phone Tia Wen MD - Internal Care Team Information Metal Loader Medicine Jean Stewart MD - Internal Care Team Information Metal Loader Medicine Problems Description No Information Available Social [...] Available Procedures Date Code Description Status 08/17/2019 34251 Diffusing Capacity Completed 08/17/2019 36054 Plethysmography Determination Lung Volumes & Per Airway Completed Resist 08/17/2019 00700 Pulmonary Function><Bronchodil Completed Medical Devices Description No Information Available Encounters Type Date Location Provider Dx Diagnosis Office Visit 09/07/2019 Pulmonology And Katerin J44.9 Chronic 3:[facility] Laureano obstructive Remotely Piloted Vehicle Controller pulmonary disease, unspecified R09.02 Hypoxemia E88.01 Qalqi-0-wjzhiatdzbx deficiency Assessments Date Code Description Provider 09/07/2019 J44.9 Chronic obstructive pulmonary disease, Katerin Laureano NP unspecified 09/07/2019 R09.02 Hypoxemia Katerin Laureano NP 09/07/2019 E88.01 Btokx-2-lhnqrhavopb deficiency Katerin Laureano NP 08/17/2019 J44.9 Chronic obstructive pulmonary disease, Viri Messer MD unspecified Plan of Treatment 09/07/2019 - Katerin Laureano NPJ44.9 Chronic obstructive pulmonary disease, unspecifiedFollow up:6 months, PFTs ywwweL05.02 JyxrhkgbnG18.01 Alpha-1- antitrypsin deficiency Functional Status Description No Information Available Mental Status Description No Information Available Referrals Description No Information Available
--- OUTSIDE RECORDS SUMMARY | 2019-09-12 12:05 | XMS REPORT | Summary of Care ---
:1955 Author Organization [facility] Address [address] [address] Care Team Providers Name Role Phone CastroJean Samantha Primary Care Provider Encounter Details Date Type Department Care Team Description 09/03/2019 Hospital Encounter [facility] Infusion Center Outpatient [address] [id number] Allergies Active Allergy Reactions Severity Noted Date Comments Latex Hives 02/23/2010 documented as of this encounter (statuses as of 09/05/2019) Medications Medication Sig Dispensed Refills Start Date [...] as of this encounter (statuses as of 09/05/2019) Active Problems Problem Noted Date 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 05/18/2019 Esophageal mass 05/04/2019 Essential hypertension 11/14/2017 Bronchiectasis without complication 06/08/2016 Overview: Elijah Forbes- Marcelina Airvo at 30LPM via Optiflo Adult Cannula (p) [phone] (f) [phone] Pseudomonas respiratory infection 09/01/2015 COLD (chronic obstructive lung disease) 09/01/2015 Controlled type 2 diabetes mellitus without complication, without 11/21/2011 long-term current use of insulin Pseudomonas aeruginosa infection 02/15/2011 Chronic bronchitis 01/04/2011 COPD (chronic obstructive pulmonary disease) 10/17/2007 Overview: Bbcqwjm-Hghoxr-utscq re-sent/faxed on 10/07/12 3LPM [facility]- evaluating for portability 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 10/17/2007 documented as of this encounter (statuses as of 09/05/2019) Resolved Problems Problem Noted Date Resolved Date Tobacco abuse 10/17/2007 01/04/2011 documented as of this encounter (statuses as of 09/05/2019) Immunizations Name Administration Dates Next Due Influenza [...] Treatment Date Type Specialty Care Team Description 09/15/2019 Appointment Infusion Therapy 09/29/2019 Appointment Infusion [...] is an individualized self-management goal for Quan Murphy Underwood: Please take all prescribed medications as [...] Rate Site heparin lock flush injection Given 09/03/2019 10:47 AM EST 500 Units Port 100-500 Units 100-500 Units, Intravenous Push, PRN, Starting Hannah 09/03/19 at 1046, Until 09/04/19 at 0606, CVC maintenance, Flush catheter per policy, If used as flush, continue until access discontinued per RN policy., normal saline (flush) injection Given 09/03/2019 10:47 AM EST 10 mL Port 10 mL, Intravenous Push, PRN, Starting Hannah 09/03/19 at 1046, Until 09/04/19 at 0606, Flush catheter per policy documented in this encounter Insurance Payer Benefit Plan / Subscriber ID Effective Dates Phone Address Type Group ASIYA HINESBS ASIYA CRAWFORD [id number] 2018-Present Asiya [employer] PPO MEDICARE MEDICARE PART A & [id number] 2006-Present Medicare B Guarantor Name Account Type Relation to Date of Phone Billing Patient Address UnderwoodQuan Personal/Family [address] (Home) [place], [place] [phone] [id number] (Work) documented as of this encounter
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
--- OUTSIDE RECORDS SUMMARY | 2019-09-12 12:05 | XMS REPORT | Summary of Care ---
:1955 Author Organization [facility] Address [address] [address] Care Team Providers Name Role Phone Jean Stewart Primary Care Provider Reason for Visit (Routine) Status Reason Specialty Diagnoses / Referred By Referred To Procedures Contact Contact Authorized Infusion Therapy Diagnoses Malignant neoplasm of esophagus, unspecified Poulose, Rph Infusion Procedures ME OXALIPLATIN ME LEUCOVORIN CALCIUM INJECTION ME FLUOROURACIL INJECTION MD [facility] [address] [address] [address] [address] [address] Phone: [phone] Encounter Details Date Type Department Care Team Description 08/18/2019 Hospital Encounter [facility] Infusion Center Outpatient [address] [phone] Allergies Active Allergy Reactions Severity Noted Date Comments Latex Hives 02/23/2010 documented as of this encounter (statuses as of 08/20/2019) Medications Medication Sig Dispensed Refills Start Date [...] as of this encounter (statuses as of 08/20/2019) Active Problems Problem Noted Date 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 05/18/2019 Esophageal mass 05/04/2019 Essential hypertension 11/14/2017 Bronchiectasis without complication 06/08/2016 Overview: Elijah Forbes- Marcelina Airvo at 30LPM via Optiflo Adult Cannula (p) [phone] (f) [phone] Pseudomonas respiratory infection 09/01/2015 COLD (chronic obstructive lung disease) 09/01/2015 Controlled type 2 diabetes mellitus without complication, without 11/21/2011 long-term current use of insulin Pseudomonas aeruginosa infection 02/15/2011 Chronic bronchitis 01/04/2011 COPD (chronic obstructive pulmonary disease) 10/17/2007 Overview: Woolpug-Rgkrtn-fgmkv re-sent/faxed on 10/07/12 3LPM [facility]- evaluating for portability Emphysema due to zuvcv-4-mcrxwolfcyp deficiency 10/17/2007 documented as of this encounter (statuses as of 08/20/2019) Resolved Problems Problem Noted Date Resolved Date Tobacco abuse 10/17/2007 01/04/2011 documented as of this encounter (statuses as of 08/20/2019) Immunizations Name Administration Dates Next Due Influenza [...] Sign Reading Time Taken Comments Blood Pressure 137/74 08/18/2019 9:00 AM EST Pulse 107 08/18/2019 9:00 AM EST Temperature 36.3 08/18/2019 9:00 AM EST C (97.4 F) Respiratory Rate - - Oxygen Saturation - - Inhaled Oxygen Concentration - - Weight 70.9 kg (156 lb 4.8 oz) 08/18/2019 9:00 AM EST Height - - Body Mass Index 25.04 08/04/2019 10:14 AM EST documented in this encounter Discharge Instructions Myra Varghese RN - 08/18/2019[facility] Medications Given Today: folfox Contact information: Please call the Infusion Nurses at [phone] if you have any questions, problems, or uncontrolledsymptoms. Please call the Hematology/Oncology Clinic at [phone] if you need to reschedule an appointment,talk to a provider, or request a prescription refill. If you are having uncontrolled symptoms and need to speak with a provider after 5pm, weekends, holidays please call [phone] and ask to speak with the oncologist district home economics agent. Reminders: Drink lots of fluids Call if any fever over 100.4 Please call anytime with any questions or concerns. documented in this encounter Plan of Treatment Date Type Specialty Care Team Description 08/20/2019 Appointment Infusion Therapy 08/25/2019 Appointment Infusion Therapy 08/25/2019 Appointment Radiology 09/01/2019 Appointment Infusion Therapy 09/01/2019 Office Visit Hematology and Oncology Germania Billings MD [address] [address] [phone] 09/01/2019 Appointment Infusion Therapy Health Maintenance Due [...] Progress Blood Pressure Blood Pressure 137/74 No [place], < 140/90 (08/18/2019 Jean Singh, 9:00 AM [...] Associated Diagnosis Comments CBC WITH DIFFERENTIAL STAT 08/18/2019 9:25 Primary adenocarcinoma Results for this AM EST of esophagus with procedure are in metastasis (HCC) the results section. COMPREHENSIVE STAT 08/18/2019 9:25 Primary adenocarcinoma Results for this METABOLIC PANEL AM EST of esophagus with procedure are in metastasis (HCC) the results section. PLATELET CHECK / Routine 08/18/2019 9:25 Primary adenocarcinoma REVIEW AM EST of esophagus with metastasis (HCC) documented in this encounter Results COMPREHENSIVE METABOLIC PANEL (08/18/2019 9:25 AM EST) Sodium 140 134 - 145 mmol/L [facility] Potassium 4.1 3.5 - 5.1 mmol/L [facility] Chloride 102 98 - 107 mmol/L [facility] CO2 29 22 - 30 mmol/L [facility] Calcium 9.2 8.3 - 10.1 mg/dl [facility] Albumin 4.0 3.5 - 5.0 g/dl [facility] BUN 11 9 - 20 mg/dl [facility] Creatinine 0.6 (L) 0.8 - 1.5 mg/dl [facility] Glucose 236 (H) 70 - 99 mg/dl [facility] Total Protein 6.7 6.3 - 8.2 g/dl [facility] Total Bilirubin 0.3 0.0 - 1.1 MG/DL [facility] AST 31 17 - 59 U/L [facility] ALT 41 21 - 72 U/L [facility] Alkaline 97 40 - 150 U/L [facility] LABORATORY eGFR >60 See Interpretation [facility] Comment: Below ml/min/1.73ml GROUP Estimated GFR Interpretation: Sq LABORATORY Above 60ml/min/1.73m2 = Normal Renal Function 30-59 ml/min/1.73m2 = Stage 3 Chronic Kidney Disease 15-29 ml/min/1.73m2 = Stage 4 Chronic Kidney Disease Less than 15 ml/min/1.73m2 = Stage 5 Chronic Kidney Disease The GFR value is calculated using the Modification of Diet in Renal Disease ( MDRD) Study Equation which can be found at: https://www.kidney.org/content/lhyt-edjiw-pfugoupq BUN/Creatinine 18 6 - 22 RATIO [facility] GROUP LABORATORY Anion Gap 9 3 - 11 mmol/L [facility] A/G Ratio 1.5 0.8 - 2.0 ratio [facility] Specimen Blood - Blood specimen (specimen) Performing Organization Address City/State/Zipcode Phone Number [facility] [address] [place] [address] [address] CBC WITH DIFFERENTIAL (08/18/2019 9:25 AM EST) WBC Count 5.87 4.23 - 9.07 K/uL [facility] RBC Count 4.51 4.30 - 5.89 M/UL [facility] Hemoglobin 12.7 (L) 13.7 - 17.5 g/dL [facility] Hematocrit 39.5 (L) 40.1 - 51.0 % [facility] MCV 87.6 79.0 - 92.2 FL [facility] MCH 28.2 25.7 - 32.2 PG [facility] MCHC 32.2 (L) 32.3 - 36.5 g/dL [facility] Platelet Count 117 (L) 163 - 337 K/uL [facility] MPV 10.2 9.4 - 12.4 FL [facility] RDW 17.9 (H) 11.6 - 14.4 % [facility] Neutrophil % 63.7 34.0 - 67.9 % [facility] Lymphocyte % 20.4 (L) 21.8 - 53.1 % [facility] Monocyte % 13.1 (H) 5.3 - 12.2 % [facility] Eosinophil % 1.7 0.8 - 7.0 % [facility] Basophil % 0.9 0.2 - 1.2 % [facility] nRBC % 0.0 0.0 - 0.2 % [facility] Neutrophil # 3.74 1.78 - 5.38 K/UL [facility] Lymphocyte # 1.20 (L) 1.32 - 3.57 K/UL [facility] Monocyte # 0.77 0.30 - 0.82 K/UL [facility] Eosinophil # 0.10 0.04 - 0.54 K/UL [facility] Basophil # 0.05 0.01 - 0.08 K/UL [facility] Immature Gran % 0.2 0.0 - 0.4 % [facility] Immature Gran # 0.01 0.00 - 0.03 K/uL [facility] NRBC # 0.00 0.00 - 0.12 K/uL [facility] Specimen Blood - Blood specimen (specimen) Performing Organization Address City/State/Zipcode Phone Number [facility] [address] [id number] PLATELET CHECK / REVIEW (08/18/2019 9:25 AM EST) Specimen Blood - Blood specimen (specimen) Performing Organization Address City/[facility] Phone Number [facility] [address] [phone] documented in this encounter Visit Diagnoses Diagnosis Primary adenocarcinoma of esophagus with metastasis (HCC) documented in this encounter Administered Medications Medication Order MAR Action Action Date Dose Rate Site dexamethasone (DECADRON) tablet 12 Given 08/18/2019 10:40 AM EST 12 mg mg 12 mg, Oral, Q2 WEEKS, 1 dose, First dose on Sat08/18/19 at 1030 dextrose 5% (flush) injection Given 08/18/2019 10:46 AM EST 10 mL 10 mL, Intravenous Push, Q2 WEEKS, 1 dose, First dose on Sat08/18/19 at 1030, Administer 5 mL PRIOR to oxaliplatin to flush the tubing. Administer the remaining 5 mL AFTER oxaliplatin to flush the tubing., fluorouracil (ADRUCIL, EFUDE, New Bag 08/18/2019 12:28 PM EST 720 mg 999 mL /hr FLUOROPLEX) 720 mg in normal saline IV mixture 720 mg, Intravenous, at 999 mL/hr, Q2 WEEKS, 1 dose, First dose on Sat08/18/19 at 1030 fluorouracil (ADRUCIL, EFUDE, FLUOROPLEX) Given 08/18/2019 12:50 PM EST 4, 320 mg CADD IV infusion 4,320 mg 4,320 mg, Intravenous, CONTINUOUS, Starting Sat08/18/19 at 1030, Until Sat08/19/19 at 0605, QS to 100 mL. Set pump to deliver 52 mL per 24 hours., granisetron (KYTRIL) tablet 2 mg Given 08/18/2019 10:40 AM EST 2 mg 2 mg, Oral, Q2 WEEKS, 1 dose, First dose on Sat08/18/19 at 1030 leucovorin (FoliNIC ACID,CALCIUM New Bag 08/18/2019 10:47 AM EST 700 mg 201.2 mL/hr FOLINATE) 700 mg in dextrose 5% IV mixture 700 mg, Intravenous, at 201.2 mL/hr, Q2 WEEKS, 1 dose, First dose on Sat08/18/19 at 1030, Ordered 720 mg , rounded to 700 mg per policy, oxaliplatin (ELOXATIN) 150 mg in New Bag 08/18/2019 10:47 AM EST 150 mg 197.6 mL/hr dextrose 5% IV mixture 150 mg, Intravenous, at 197.6 mL/hr, Q2 WEEKS, 1 dose, First dose on Sat08/18/19 at 1030, Run concurrently with LV. Ordered 153 mg, rounded to 150 mg per policy, documented in this encounter Insurance Payer Benefit Plan / Subscriber ID Effective Dates Phone Address Type Group ASIYA HINESBS ASIYA CRAWFORD [id number] 2018-Present Asiya FORTUNE PPO MEDICARE MEDICARE PART A & [id number] 2006-Present Medicare B Guarantor Name Account Type Relation to Date of Phone Billing Patient Address Quan Underwood Personal/Family 1955 [address] (Home) [place], [place] [phone] (Work) documented as of this encounter
--- OUTSIDE RECORDS SUMMARY | 2019-09-12 12:05 | XMS REPORT | Summary of Care ---
:1955 Author Organization [facility] Address [address] [address] Care Team Providers Name Role Phone SarpyJean Samantha Primary Care Provider Encounter Details Date Type Department Care Team Description 08/25/2019 Hospital Encounter [facility] Infusion Center Outpatient [address] [phone] Allergies Active Allergy Reactions Severity Noted Date [...] at 30LPM via Optiflo Adult Cannula (p) [phone] (f) [phone] Pseudomonas respiratory infection 09/01/2015 COLD (chronic obstructive lung disease) 09/01/2015 Controlled type 2 diabetes mellitus without complication, without 11/21/2011 long-term current use of insulin Pseudomonas aeruginosa infection 02/15/2011 Chronic bronchitis 01/04/2011 COPD (chronic obstructive pulmonary disease) 10/17/2007 Overview: Ylskrwh-Jbxaap-wgsid re-sent/faxed on 10/07/12 3LPM [facility]- evaluating for portability 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
--- OUTSIDE RECORDS SUMMARY | 2019-09-12 12:05 | XMS REPORT | Summary of Care ---
:1955 Author Organization [facility] Address [address] [address] Care Team Providers Name Role Phone Jean Stewart Primary Care Provider Reason for Visit (Routine) Status Reason Specialty Diagnoses / Referred By Referred To Procedures Contact Contact Authorized Infusion Therapy Diagnoses Malignant neoplasm of esophagus, unspecified Poulose, Rph Infusion Procedures VA OXALIPLATIN VA LEUCOVORIN CALCIUM INJECTION VA FLUOROURACIL INJECTION MD [facility] [address] [address] [address] [address] [address] Phone: [phone] Encounter Details Date Type Department Care Team Description 08/04/2019 Hospital Encounter [facility] Infusion Center Outpatient [address] [phone] Allergies Active Allergy Reactions Severity Noted Date [...] at 30LPM via Optiflo Adult Cannula (p) [phone] (f) [phone] Pseudomonas respiratory infection 09/01/2015 COLD (chronic obstructive lung disease) 09/01/2015 Controlled type 2 diabetes mellitus without complication, without 11/21/2011 long-term current use of insulin Pseudomonas aeruginosa infection 02/15/2011 Chronic bronchitis 01/04/2011 COPD (chronic obstructive pulmonary disease) 10/17/2007 Overview: Zpklqvm-Sdcppd-zmmsb re-sent/faxed on 10/07/12 3LPM [facility]- evaluating for portability Emphysema due to gcckw-6-eeswvnvqgvf deficiency 10/17/2007 documented as of this encounter [...] encounter Discharge Instructions Myra Varghese RN - 08/04/2019[facility] Medications Given Today: Folfox Contact information: Please call the Infusion Nurses at [phone] if you have any questions, problems, or uncontrolledsymptoms. Please call the Hematology/Oncology Clinic at [phone] if you need to reschedule an appointment,talk to a provider, or request a prescription refill. If you are having uncontrolled symptoms and need to speak with a provider after 5pm, weekends, holidays please call [phone] and ask to speak with the oncologist medical authorization specialist. Reminders: You are connected to a home infusion pump. If you are experiencing any difficulties with your pump there is a RN medical authorization specialist to answer your questions. Weekdays from 7:00am to 5:00pm please call the Medical Oncology Infusion Center at [phone]. After 5pm, weekends and holidays please call the [facility] switchboard at [phone] andask for the Med/Onc Infusion nurse medical authorization specialist. Drink lots of fluids Call if any fever over 100.4 Return at 1200 for pump off. Please call anytime with any questions or concerns. documented in this encounter Plan of Treatment Date Type Specialty Care Team Description 08/06/2019 Appointment Infusion Therapy 08/18/2019 Appointment Infusion Therapy 08/25/2019 Appointment Infusion Therapy 08/25/2019 Appointment Radiology 09/01/2019 Appointment Infusion Therapy 09/01/2019 Office Visit Hematology and Oncology [facility] Billings MD [address] [address] [phone] 09/01/2019 Appointment Infusion Therapy Health Maintenance Due [...] Progress Blood Pressure Blood Pressure 112/72 No [place], < 140/90 (08/04/2019 Jean Singh, 2:07 PM [...] This is an individualized lifestyle goal for Qaun Underwood: Your body mass index (BMI) is [...] Rate Site dexamethasone (DECADRON) tablet 12 Given 08/04/2019 11:28 AM EST 12 mg mg 12 mg, Oral, Q2 WEEKS, 2 doses, First dose on Sat08/04/19 at 1130, Last dose on Sat08/18/19 at 1130 dextrose 5% (flush) injection Push 08/04/2019 1:34 PM EST 10 mL 10 mL, Intravenous Push, Q2 WEEKS, 2 doses, First dose on Sat08/04/19 at 1130, Last dose on Sat08/18/19 at 1130, Administer 5 mL PRIOR to oxaliplatin to flush the tubing. Administer the remaining 5 mL AFTER oxaliplatin to flush the tubing., Given 08/04/2019 12:03 PM EST 10 mL fluorouracil (ADRUCIL, EFUDE, New Bag 08/04/2019 1:37 PM EST 720 mg 1372.8 mL/hr FLUOROPLEX) 720 mg in normal saline IV mixture 720 mg, Intravenous, at 1,372.8 mL/hr, Q2 WEEKS, 2 doses, First dose on Sat08/04/19 at 1130, Last dose on Sat08/18/19 at 1130 fluorouracil (ADRUCIL, EFUDE, FLUOROPLEX) Given 08/04/2019 1:46 PM EST 4, 320 mg CADD IV infusion 4,320 mg 4,320 mg, Intravenous, CONTINUOUS, Starting Sat08/04/19 at 1130, Until Sat08/05/19 at 0605, QS to 100 mL. Set pump to deliver 52 mL per 24 hours., granisetron (KYTRIL) tablet 2 mg Given 08/04/2019 11:28 AM EST 2 mg 2 mg, Oral, Q2 WEEKS, 2 doses, First dose on Sat08/04/19 at 1130, Last dose on Sat08/18/19 at 1130 leucovorin (FoliNIC ACID,CALCIUM New Bag 08/04/2019 12:03 PM EST 700 mg 201.2 mL/hr FOLINATE) 700 mg in dextrose 5% IV mixture 700 mg, Intravenous, at 201.2 mL/hr, Q2 WEEKS, 2 doses, First dose on Sat08/04/19 at 1130, Last dose on Sat08/18/19 at 1130, 720 mg ordered, rounded to 700 mg, oxaliplatin (ELOXATIN) 150 mg in New Bag 08/04/2019 12:03 PM EST 150 mg 197.6 mL/hr dextrose 5% IV mixture 150 mg, Intravenous, at 197.6 mL/hr, Q2 WEEKS, 2 doses, First dose on Sat08/04/19 at 1130, Last dose on Sat08/18/19 at 1130, Run concurrently with LV. Ordered 153 mg rounded to 150 mg per policy, documented in this encounter Insurance Payer Benefit Plan / Subscriber ID Effective Dates Phone Address Type Group MEDICARE MEDICARE PART A & xxxxxxxxxxx 2006-Present Medicare B ASIYA HINESBS ASIYA CRAWFORD xxxxxxxxxxxx 2018-Present Asiya FORTUNE PPO Guarantor Name Account Type Relation to Date of Phone Billing Patient Address Quan Underwood Personal/Family 1955 [address] (Home) [place], [place] [phone] (Work) documented as of this encounter
[2019-09-12] MEDS ORDERED: Albuterol/Ipratropium NEB.SOL* Albuterol 2.5 MG/Ipratropium 0.5 MG 3 ML INH ONE (12:06)
--- OUTSIDE RECORDS SUMMARY | 2019-09-12 12:06 | XMS REPORT | Summary of Care ---
:1955 Author Organization [facility] Address [address] [address] Care Team Providers Name Role Phone ZapataJean Samantha Primary Care Provider Encounter Details Date Type Department Care Team Description 07/23/2019 Hospital Encounter [facility] Infusion Center Outpatient [address] [phone] Allergies Active Allergy Reactions Severity Noted Date Comments Latex Hives 02/23/2010 documented as of this encounter (statuses as of 07/25/2019) Medications Medication Sig Dispensed Refills Start Date [...] as of this encounter (statuses as of 07/25/2019) Active Problems Problem Noted Date 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 05/18/2019 Esophageal mass 05/04/2019 Essential hypertension 11/14/2017 Bronchiectasis without complication 06/08/2016 Overview: GaryRserg Forbes- Marcelina Airvo at 30LPM via Optiflo Adult Cannula (p) [phone] (f) [phone] Pseudomonas respiratory infection 09/01/2015 COLD (chronic obstructive lung disease) 09/01/2015 Controlled type 2 diabetes mellitus without complication, without 11/21/2011 long-term current use of insulin Pseudomonas aeruginosa infection 02/15/2011 Chronic bronchitis 01/04/2011 COPD (chronic obstructive pulmonary disease) 10/17/2007 Overview: Bswrnyo-Tlrnre-sxual re-sent/faxed on 10/07/12 3LPM [facility]- evaluating for portability Emphysema due to gxgop-1-uugyfgatcuj deficiency 10/17/2007 documented as of this encounter (statuses as of 07/25/2019) Resolved Problems Problem Noted Date Resolved Date Tobacco abuse 10/17/2007 01/04/2011 documented as of this encounter (statuses as of 07/25/2019) Immunizations Name Administration Dates Next Due Influenza [...] Treatment Date Type Specialty Care Team Description 08/04/2019 Appointment Infusion Therapy 08/04/2019 Office Visit Hematology and Oncology Jared Blankenship PA-C [address] [address] [phone] 08/04/2019 Appointment Infusion Therapy Health Maintenance Due Date [...] Type Problems Progress Blood Pressure Blood Pressure 165/72 No [place], < 140/90 (07/21/2019 Jean Singh, 8:15 AM EST) Note: This is an individualized [...] better. Weight loss vs. 18 mo Lifestyle 29.2 (07/21/2019 8:15 AM Jean Powell MD max (lbs) >= [...] Rate Site heparin lock flush injection Given 07/23/2019 10:08 AM EST 500 Units 100-500 Units 100-500 Units, Intravenous Push, PRN, Starting Sat07/22/19 at 0917, Until Sat07/24/19 at 0606, CVC maintenance, Flush catheter per policy, If used as flush, continue until access discontinued per RN policy., normal saline (flush) injection Given 07/23/2019 10:07 AM EST 10 mL 10 mL, Intravenous Push, PRN, Starting Sat07/22/19 at 0917, Until Sat07/24/19 at 0606, Flush catheter per policy documented in this encounter Insurance Payer Benefit Plan / Subscriber ID Effective Dates Phone Address Type Group YUEUS BCBS ASIYA CRAWFORD xxxxxxxxxxxx 2018-Present Asiya CROSS PPO MEDICARE MEDICARE PART A & xxxxxxxxxxx 2006-Present Medicare B Guarantor Name Account Type Relation to Date of Phone Billing Patient Address Quan Underwood Personal/Family [address] (Home) [place], [place] [phone] (Work) documented as of this encounter
--- OUTSIDE RECORDS SUMMARY | 2019-09-12 12:06 | XMS REPORT | Summary of Care ---
:1955 Author Organization [facility] Address [address] [address] Care Team Providers Name Role Phone Jean Stewart Primary Care Provider Reason for Visit (Routine) Status Reason Specialty Diagnoses / Referred By Referred To Procedures Contact Contact Authorized Infusion Therapy Diagnoses Malignant neoplasm of esophagus, unspecified Poulose, Rph Infusion Procedures KS OXALIPLATIN [place] LEUCOVORIN CALCIUM INJECTION [place] FLUOROURACIL INJECTION MD [facility] [address] [address] [address] [place] [address] [place] Phone: [phone] Encounter Details Date Type Department Care Team Description 07/21/2019 Hospital Encounter [facility] Infusion Center Outpatient [address] [id number] Allergies Active Allergy Reactions Severity Noted Date Comments Latex Hives 02/23/2010 documented as of this encounter (statuses as of 07/23/2019) Medications Medication Sig Dispensed Refills Start Date [...] as of this encounter (statuses as of 07/23/2019) Active Problems Problem Noted Date 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 05/18/2019 Esophageal mass 05/04/2019 Essential hypertension 11/14/2017 Bronchiectasis without complication 06/08/2016 Overview: [facility] Attention- Marcelina Airvo at 30LPM via [employer] Adult Cannula (p) [phone] (f) [phone] Pseudomonas respiratory infection 09/01/2015 COLD (chronic obstructive lung disease) 09/01/2015 Controlled type 2 diabetes mellitus without complication, without 11/21/2011 long-term current use of insulin Pseudomonas aeruginosa infection 02/15/2011 Chronic bronchitis 01/04/2011 COPD (chronic obstructive pulmonary disease) 10/17/2007 Overview: [id number] re-sent/faxed on 10/07/12 3LPM [facility]- evaluating for portability Emphysema due to [id number] deficiency 10/17/2007 documented as of this encounter (statuses as of 07/23/2019) Resolved Problems Problem Noted Date Resolved Date Tobacco abuse 10/17/2007 01/04/2011 documented as of this encounter (statuses as of 07/23/2019) Immunizations Name Administration Dates Next Due Influenza [...] Sign Reading Time Taken Comments Blood Pressure 165/72 07/21/2019 8:15 AM EST Pulse 101 07/21/2019 8:15 AM EST Temperature 36.6 07/21/2019 8:15 AM C (97.8 EST F) Respiratory Rate - - Oxygen Saturation - - Inhaled Oxygen Concentration - - Weight 69.8 kg (153 lb 12.8 oz) 07/21/2019 8:15 AM EST Height - - Body Mass Index 25.01 07/07/2019 1:47 PM EST documented in this encounter Plan of Treatment Date Type Specialty Care Team Description 07/23/2019 Hospital Encounter Infusion Therapy 08/04/2019 Appointment Infusion Therapy 08/04/2019 Office Visit Hematology and Oncology Jared Blankenship PA-C [address] [address] [phone] 08/04/2019 Appointment Infusion Therapy Health Maintenance Due [...] Associated Diagnosis Comments CBC WITH DIFFERENTIAL STAT 07/21/2019 8:33 Primary adenocarcinoma Results for this AM EST of esophagus with procedure are in metastasis (HCC) the results section. COMPREHENSIVE STAT 07/21/2019 8:33 Primary adenocarcinoma Results for this METABOLIC PANEL AM EST of esophagus with procedure are in metastasis (HCC) the results section. documented in this encounter Results COMPREHENSIVE METABOLIC PANEL (07/21/2019 8:33 AM EST) Sodium 141 134 - 145 mmol/L [facility] Potassium 4.3 3.5 - 5.1 mmol/L [facility] Chloride 105 98 - 107 mmol/L [facility] CO2 26 22 - 30 mmol/L [facility] Calcium 9.2 8.3 - 10.1 mg/dl [facility] Albumin 4.0 3.5 - 5.0 g/dl [facility] BUN 9 9 - 20 mg/dl [facility] Creatinine 0.5 (L) 0.8 - 1.5 mg/dl [facility] Glucose 162 (H) 70 - 99 mg/dl [facility] Total Protein 7.0 6.3 - 8.2 g/dl [facility] Total Bilirubin 0.3 0.0 - 1.1 MG/DL [facility] AST 31 17 - 59 U/L [facility] ALT 44 21 - 72 U/L [facility] Alkaline 105 40 - 150 U/L [facility] Phosphatase [facility] eGFR >60 See Interpretation [facility] Comment: Below ml/min/1.73ml GROUP Estimated GFR Interpretation: LABORATORY Above 60ml/min/1.73m2 = Normal Renal Function 30-59 ml/min/1.73m2 = Stage 3 Chronic Kidney Disease 15-29 ml/min/1.73m2 = Stage 4 Chronic Kidney Disease Less than 15 ml/min/1.73m2 = Stage 5 Chronic Kidney Disease The GFR value is calculated using the Modification of Diet in Renal Disease ( MDRD) Study Equation which can be found at: https://www.kidney.org/content/flnm-jmgjt-utkgradv BUN/Creatinine 18 6 - 22 RATIO [facility] Anion Gap 10 3 - 11 mmol/L [facility] A/G Ratio 1.3 0.8 - 2.0 ratio [facility] Specimen Blood - Blood specimen (specimen) Performing Organization Address City/State/Zipcode Phone Number [facility] [address] [place] [address] CBC WITH DIFFERENTIAL (07/21/2019 8:33 AM EST) WBC Count 6.75 4.23 - 9.07 K/uL [facility] RBC Count 4.56 4.30 - 5.89 M/UL [facility] Hemoglobin 12.5 (L) 13.7 - 17.5 g/dL [facility] Hematocrit 39.3 (L) 40.1 - 51.0 % [facility] MCV 86.2 79.0 - 92.2 FL [facility] MCH 27.4 25.7 - 32.2 PG [facility] MCHC 31.8 (L) 32.3 - 36.5 g/dL [facility] Platelet Count 140 (L) 163 - 337 K/uL [facility] MPV 10.0 9.4 - 12.4 FL [facility] RDW 17.5 (H) 11.6 - 14.4 % [facility] Neutrophil % 64.4 34.0 - 67.9 % [facility] Lymphocyte % 19.0 (L) 21.8 - 53.1 % [facility] Monocyte % 13.5 (H) 5.3 - 12.2 % [facility] Eosinophil % 1.8 0.8 - 7.0 % [facility] Basophil % 1.0 0.2 - 1.2 % [facility] nRBC % 0.0 0.0 - 0.2 % [facility] Neutrophil # 4.35 1.78 - 5.38 K/UL [facility] Lymphocyte # 1.28 (L) 1.32 - 3.57 K/UL [facility] Monocyte # 0.91 (H) 0.30 - 0.82 K/UL [facility] Eosinophil # 0.12 0.04 - 0.54 K/UL [facility] Basophil # 0.07 0.01 - 0.08 K/UL [facility] Immature Gran % 0.3 0.0 - 0.4 % [facility] Immature Gran # 0.02 0.00 - 0.03 K/uL [facility] NRBC # 0.00 0.00 - 0.12 K/uL [facility] Specimen Blood - Blood specimen (specimen) Performing Organization Address City/State/Zipcode Phone Number [facility] [address] [address] [phone] documented in this encounter Visit Diagnoses Diagnosis Primary adenocarcinoma of esophagus with metastasis (HCC) documented in this encounter Administered Medications Medication Order MAR Action Action Date Dose Rate Site dexamethasone (DECADRON) tablet 12 Given 07/21/2019 9:45 AM EST 12 mg mg 12 mg, Oral, Q2 WEEKS, 2 doses, First dose on Sat07/21/19 at 0940, Last dose on Sat08/04/19 at 0940 dextrose 5% (flush) injection Given 07/21/2019 11:41 AM EST 10 mL 10 mL, Intravenous Push, Q2 WEEKS, 2 doses, First dose on Sat07/21/19 at 0940, Last dose on Sat08/04/19 at 0940, Administer 5 mL PRIOR to oxaliplatin to flush the tubing. Administer the remaining 5 mL AFTER oxaliplatin to flush the tubing., Given 07/21/2019 10:06 AM EST 10 mL fluorouracil (ADRUCIL, EFUDE, New Bag 07/21/2019 11:46 AM EST 712 mg 999 mL /hr FLUOROPLEX) 712 mg in normal saline IV mixture 712 mg, Intravenous, at 999 mL/hr, Q2 WEEKS, 2 doses, First dose on Sat07/21/19 at 0940, Last dose on Sat08/04/19 at 0940 fluorouracil (ADRUCIL, EFUDE, FLUOROPLEX) Given 07/21/2019 11:57 AM EST 4, 272 mg CADD IV infusion 4,272 mg 4,272 mg, Intravenous, CONTINUOUS, Starting Sat07/21/19 at 0940, Until Sat07/22/19 at 0606, QS to 100 mL. Set pump to deliver 52 mL per 24 hours., granisetron (KYTRIL) tablet 2 mg Given 07/21/2019 9:45 AM EST 2 mg 2 mg, Oral, Q2 WEEKS, 2 doses, First dose on Sat07/21/19 at 0940, Last dose on Sat08/04/19 at 0940 leucovorin (FoliNIC ACID,CALCIUM New Bag 07/21/2019 10:06 AM EST 700 mg 201.2 mL/hr FOLINATE) 700 mg in dextrose 5% IV mixture 700 mg, Intravenous, at 201.2 mL/hr, Q2 WEEKS, 2 doses, First dose on Sat07/21/19 at 0940, Last dose on Sat08/04/19 at 0940, Dose ordered 712 mg; rounded to 700 mg per policy, oxaliplatin (ELOXATIN) 150 mg in New Bag 07/21/2019 10:06 AM EST 150 mg 197.6 mL/hr dextrose 5% IV mixture 150 mg, Intravenous, at 197.6 mL/hr, Q2 WEEKS, 2 doses, First dose on Sat07/21/19 at 0940, Last dose on Sat08/04/19 at 0940, Run concurrently with LV. Dose ordered 151 mg; rounded to 150 mg per policy, documented in this encounter Insurance Payer Benefit Plan / Subscriber ID Effective Dates Phone Address Type Group YUE BCBS ASIYA YVETTE xxxxxxxxxxxx 2018-Present Asiya TONG PPO MEDICARE MEDICARE PART A & xxxxxxxxxxx 2006-Present Medicare B Guarantor Name Account Type Relation to Date of Phone Billing Patient Address Quan Underwood Personal/Family 1955 [address] (Home) [place], [place] [phone] (Work) documented as of this encounter
[2019-09-12] MEDS ORDERED: methylPREDNISolone 125 MG* 2 ML VIAL IV ONE (12:10)
[2019-09-12] MEDS ORDERED: NS 0.9% 1000 ML** 1,000 ML IV ONE (12:11)
[2019-09-12 12:44] LABS: ABS Eosinophils 0.1 10^3/ul (0-0.6); ABS Lymphocytes 0.7 10^3/ul (1.0-4.8); ABS Monocytes 0.9 10^3/ul (0-0.8); Eosinophil % 1.2 %; Hematocrit 38 % (42-52); Lymphocyte % 12.1 %; Mean Corpuscular HGB Conc 34 g/dL (31-36); Mean Corpuscular Hemoglobin 30 pg (27-31); Mean Corpuscular Volume 88 fL (80-94); Mean Platelet Volume 8.2 fL (7.4-10.4); Platelet Count 107 10^3/uL (150-450); Red Blood Count 4.38 10^6 /uL (4.18-5.48); Red Cell Distribution Width 19 % (10-15); White Blood Count 5.7 10^3/uL (3.5-10.8)
[2019-09-12 13:01] LABS: Albumin/Globulin Ratio 1.6 (1-3); BUN/Creatinine Ratio 13.9 (8-20); Calcium 9.2 mg/dL (8.6-10.3); EGFR African American 119.9 (>60); EGFR Non-African American 99.1 (>60); Globulin 2.5 g/dL (2-4); Total Bilirubin 0.3 mg/dL (0.2-1.0); Total Protein 6.5 g/dL (6.4-8.9)
[2019-09-12 13:03] LABS: Troponin I 0.01 ng/mL (<0.03)
[2019-09-12] MEDS ORDERED: cefTRIAXone(*) 1 GM in NS 0.9% 50 ML* 50 ML IVPB ONE (13:27)
[2019-09-12] MEDS ORDERED: Azithromycin 500 mg/250 ml NS 500 MG/250 ML BAG IVPB ONE (13:27)
[2019-09-12] MEDS ORDERED: Ondansetron TAB* 4 MG PO PRN (16:01)
[2019-09-12] MEDS ORDERED: Dextrose 50% Syringe 50 ML* 25 GM/50 ML SYRINGE IV PUSH PRN (16:10)
[2019-09-12 16:51] LABS: Influenza A Molecular Negative (Negative); Influenza B Molecular Negative (Negative)
--- NOTE | 2019-09-12 17:08 | HP ---
CC: Dr. Stewart * [facility] MEDICINE HISTORY AND PHYSICAL: DATE OF ADMISSION: 09/12/19 PRIMARY CARE PHYSICIAN: Dr. Stewart. ATTENDING PHYSICIAN: Dr. Get Cavazos.* (DICTATED BY MARGARITA SHARPE NP) CHIEF COMPLAINT: Shortness of breath. HISTORY OF PRESENT ILLNESS: Mr. 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 Mr. Underwood states he was in his normal state of health in recent days and he suddenly began feeling short of breath today around 10:30. He states he was not doing anything when this happened. He did not have any worsening cough, but suddenly felt it was difficult to catch his breath. He used a DuoNeb nebulizer per his routine, and while he did not feel any better, he called emergency medical service to be brought to the hospital. He denies fever. He states his cough is unchanged. He denies chest pain. He has had no nausea, vomiting, diarrhea, abdominal pain. He has had no recent travel either out of the country or out of the [facility]. He has had no known contacts with any patients diagnosed with COVID-19. In the emergency room, Mr. Underwood had a chest x-ray, which showed no radiographic evidence for acute cardiopulmonary abnormality. He had an EKG, which showed sinus tachycardia with a heart rate of about 110 and no evidence of ischemia. He had labs which showed no leukocytosis. His blood gas showed an acute respiratory acidosis with pH 7.27, pCO2 of 57, bicarbonate 22.9, pO2 of 42. He has a mild lactic acidosis with a lactic acid of 2.2. He is on his normal 3 L nasal cannula satting well at rest, but dropping to 80% with ambulation. PAST MEDICAL HISTORY: 1. Severe COPD. Most recent PFTs from 08/17/19 interpreted to show "very severe obstructive ventilatory defect with partial reversibility to bronchodilators." 2. Type 2 diabetes, [id number]. 3. Esophageal cancer with metastases to the liver, currently on chemotherapy with reported improvement on his chemotherapy regimen. 4. Alpha-1 antitrypsin deficiency. 5. GERD. 6. History of pseudomonas infections. 7. History of hypertension. MEDICATIONS: 1. Albuterol p.r.n. via nebulizer or inhaler. 2. Alpha-1 proteinase inhibitor 1000 mg IV weekly. 3. Metformin 1000 mg p.o. b.i.d. 4. Atorvastatin 20 mg p.o. daily. 5. Lisinopril 20 mg p.o. daily. 6. Omeprazole 20 mg p.o. daily. 7. Ondansetron 4 mg p.o. q.6 hours p.r.n. 8. Anoro Ellipta 62.5/25 one puff inhaled daily. ALLERGIES: To LATEX. FAMILY HISTORY: The patient's parents both had COPD. SOCIAL HISTORY: The patient is a former smoker. There is no report of alcohol or drug use. He lives with his , who is at the bedside and she will be the healthcare proxy. REVIEW OF SYSTEMS: A 14-point review of systems was completed with Mr. Underwood and all those not mentioned above were negative. PHYSICAL EXAMINATION GENERAL: Mr. Underwood is sitting up in the bed with his at the bedside. He is in no acute distress. VITAL SIGNS: Temperature 97.7, pulse rate 118, respiratory rate 26, O2 saturation 96% on 3 L nasal cannula, blood pressure is 126/91. LUNGS: Diminished throughout bilaterally. There is no wheezing noted. There is no accessory muscle use. Again, he was noted to have an O2 saturation of 80 % with ambulation on 3 L nasal cannula. HEART: S1, S2. No murmur, rub, or gallop and regular. ABDOMEN: Soft, nontender with bowel sounds positive x4. EXTREMITIES: No cyanosis or edema. NEURO: He is alert. He is oriented x3. He moves all extremities equally. There is no facial asymmetry or focal weakness. Extraocular movements are intact. SKIN: Intact. DIAGNOSTIC STUDIES/LAB DATA: Sodium 142, potassium 4.0, chloride 106, serum bicarbonate 26, BUN 11, creatinine 0.79, glucose 193, lactic acid 2.2. Troponin 0.01. WBC 5.7, hemoglobin 13.0, hematocrit 38, platelet count 107. Blood gas is as read per above. Chest x-ray is as per above and EKG as per above. ASSESSMENT AND PLAN: Mr. Underwood is a 63-year-old male with past medical history of severe chronic obstructive pulmonary disease, on routine 3 L nasal cannula; esophageal cancer with metastases to the liver, on chemotherapy; diabetes; and alpha-1 antitrypsin deficiency, who presents to the hospital today with concern for sudden onset of shortness of breath, who denies fever, worsening cough, or any sick contacts. Our plans are for observation in the hospital for the followin. Chronic obstructive pulmonary disease exacerbation. The patient has no evidence of pneumonia on his CT scan. He has no leukocytosis, no fever. He has no sick contacts. I suspect this is a simple chronic obstructive pulmonary disease exacerbation and plan to treat with methylprednisolone, azithromycin, and DuoNeb nebulizers are needed. He will have oxygen titrated as needed, but currently at rest is on his home 3 L. 2. Type 2 diabetes. Plan to check blood glucoses q.a.c. with lispro sliding scale. We will hold metformin. I do anticipate him being hyperglycemic because he is on steroids. He will have a consistent carbohydrate diet. 3. History of esophageal cancer. The patient states that he was planned to have chemotherapy on Saturday. I have instructed him that he will need to call and speak with his providers to determine what the course of action should be. He does have an oncologist through [facility]. 4. Hypertension. Plan to continue lisinopril. 5. Code status is full code. TIME SPENT: Approximately 60 minutes was spent on the admission of this patient , more than half the time was spent with the patient at the bedside reviewing the events leading up to this hospitalization, performing the physical examination, and reviewing my plan of care. MARGARITA SHARPE NP [id number]/[facility] #: [id number] [place]
[2019-09-12] MEDS: Atorvastatin* 20 MG TAB PO SCH (19:27)
[2019-09-12] MEDS: methylPREDNISolone SOD 40 MG* 1 ML VIAL IV SCH (19:30)
[2019-09-12] MEDS: Insulin LISPRO* 1 UNITS UNIT SUBCUT SCH (19:39)
[2019-09-12] MEDS: Albuterol/Ipratropium NEB.SOL* Albuterol 2.5 MG/Ipratropium 0.5 MG 3 ML INH PRN (20:07)
[2019-09-13] MEDS: methylPREDNISolone SOD 40 MG* 1 ML VIAL IV SCH ×4 (00:19→23:19)
[2019-09-13] MEDS: Tiotropium Brom/Olodaterol MDI INH SCH (09:04)
[2019-09-13] MEDS: Albuterol/Ipratropium NEB.SOL* Albuterol 2.5 MG/Ipratropium 0.5 MG 3 ML INH PRN ×2 (09:06→20:30)
[2019-09-13] MEDS: Pantoprazole TAB * 40 MG TAB PO SCH (09:13)
[2019-09-13] MEDS: Azithromycin TAB* 250 MG PO SCH (09:13)
[2019-09-13] MEDS: Lisinopril TAB* 10 MG PO SCH (09:13)
[2019-09-13] MEDS: Insulin GLARGINE(*) 1 UNITS UNIT SUBCUT SCH (09:13)
[2019-09-13] MEDS: Insulin LISPRO* 1 UNITS UNIT SUBCUT SCH ×3 (09:13→17:43)
--- NOTE | 2019-09-13 14:46 | PN ---
Subjective Date of Service: 09/13/19 Interval History: patient seen today, feels better. He wanted to leave AMA this morning when i saw. I was not able to convince him to stay. His came to visit and was able to convince and he agreed to stay Past Medical History: Unchanged from Admission Objective Active Medications: Albuterol/Ipratropium (Duoneb (Albuterol 2.5 Mg/Ipratropium 0.5 Mg)) 1 neb INH Q4H PRN PRN Reason: SOB/WHEEZING Last Admin: 09/13/19 09:06 Dose: 1 neb Atorvastatin Calcium (Lipitor*) 20 mg PO 1700 [facility] Last Admin: 09/12/19 19:27 Dose: 20 mg Azithromycin (Zithromax Tab*) 250 mg PO DAILY [facility] Last Admin: 09/13/19 09:13 Dose: 250 mg Dextrose (D50w Syringe 50 Ml*) 12.5 gm IV PUSH .FOR FS < 60 - SS PRN PRN Reason: FS < 60 Heparin Sodium (Porcine) (Heparin Flush Port (Ivad)) 5 ml FLUSH DAILY [facility]; Protocol Last Admin: 09/13/19 09:25 Dose: 5 ml Insulin Glargine (Lantus(*)) 12 units SUBCUT DAILY [facility] Last Admin: 09/13/19 09:13 Dose: 12 units Insulin Human Lispro (Humalog*) 0 units SUBCUT AC [facility]; Protocol Last Admin: 09/13/19 12:57 Dose: 8 units Lisinopril (Prinivil Tab*) 20 mg PO DAILY [facility] Last Admin: 09/13/19 09:13 Dose: 20 mg Methylprednisolone Sodium Succinate (Solu-Medrol 40 Mg) 40 mg IV Q8H [facility] Last Admin: 09/13/19 09:14 Dose: 40 mg Ondansetron HCl (Zofran Tab*) 4 mg PO Q6H PRN PRN Reason: NAUSEA Pantoprazole Sodium (Protonix Tab*) 40 mg PO DAILY [facility] Last Admin: 09/13/19 09:13 Dose: 40 mg Tiotropium [place]/Olodaterol (Stiolto Respimat Inh [place] (60 Puff)) 1 puff INH DAILY [facility] Last Admin: 09/13/19 09:04 Dose: 1 puff Vital Signs - 8 hr 09/13/19 09/13/19 07:15 11:15 Temperature 97.8 F 97.9 F Pulse Rate 101 118 Respiratory 18 24 Rate Blood Pressure 154/88 156/61 (mmHg) O2 Sat by Pulse 98 98 Oximetry Oxygen Devices in Use Now: Nasal Cannula Ears/Nose/Mouth/Throat: Mucous Membranes Moist Neck: NL Appearance and Movements; NL JVP, Trachea Midline Respiratory: - - expiratory wheezing Cardiovascular: NL Sounds; No Murmurs; No JVD Result Diagrams: 09/12/19 12:25 09/12/19 12:25 Microbiology and Other Data: Microbiology 09/12/19 12:41 Aerobic Blood Culture - Preliminary Blood Venous No Growth Day 1 Anaerobic Blood Culture - Preliminary No Growth Day 1 09/12/19 12:25 Aerobic Blood Culture - Preliminary Blood Venous No Growth Day 1 Anaerobic Blood Culture - Preliminary No Growth Day 1 Assess/Plan/Problems-Billing Assessment: 63 y/o male here for COPD exacerbations - Patient Problems (1) Esophageal cancer Current Visit: Yes Status: Acute Comment: - Follows with his oncologist at [place] - Advised to call them on saturday and notify them of his current illness as they may need to be aware and postpone his chemo (2) COPD exacerbation Current Visit: No Status: Acute Code(s): J44.1 - CHRONIC OBSTRUCTIVE PULMONARY DISEASE W (ACUTE) EXACERBATION SNOMED Code(s): 482879417 Comment: - Continue albuterol, Zithromax 250 mg daily - Solumedrol 40 mg IV Q8hrs - Continue siotlo, (3) DVT prophylaxis Current Visit: No Status: Acute Code(s): GCR3237 - SNOMED Code(s): 453423397 Comment: SQ Heparin
[2019-09-13] MEDS: Atorvastatin* 20 MG TAB PO SCH (17:43)
[2019-09-14] MEDS: Albuterol/Ipratropium NEB.SOL* Albuterol 2.5 MG/Ipratropium 0.5 MG 3 ML INH PRN (06:17)
[2019-09-14] MEDS: Tiotropium Brom/Olodaterol MDI INH SCH (07:56)
[2019-09-14 08:16] VITALS: BP 132/86
[2019-09-14] MEDS: Pantoprazole TAB * 40 MG TAB PO SCH (08:30)
[2019-09-14] MEDS: Azithromycin TAB* 250 MG PO SCH (08:30)
[2019-09-14] MEDS: Lisinopril TAB* 10 MG PO SCH (08:30)
[2019-09-14] MEDS: Insulin LISPRO* 1 UNITS UNIT SUBCUT SCH (08:31)
[2019-09-14] MEDS: Insulin GLARGINE(*) 1 UNITS UNIT SUBCUT SCH (08:31)
[2019-09-14] MEDS: methylPREDNISolone SOD 40 MG* 1 ML VIAL IV SCH (08:37)
[2019-09-14 09:33] LABS: ABS Lymphocytes 0.5 10^3/ul (1.0-4.8); ABS Monocytes 0.8 10^3/ul (0-0.8); ABS Neutrophils 9.1 10^3/ul (1.5-7.7); Hematocrit 38 % (42-52); Hemoglobin 12.8 g/dL (14.0-18.0); Mean Corpuscular HGB Conc 33 g/dL (31-36); Mean Corpuscular Hemoglobin 29 pg (27-31); Mean Corpuscular Volume 88 fL (80-94); Mean Platelet Volume 8.2 fL (7.4-10.4); Nucleated Red Blood Cells % 0.1; Platelet Count 132 10^3/uL (150-450); Red Blood Count 4.35 10^6 /uL (4.18-5.48); Red Cell Distribution Width 19 % (10-15); White Blood Count 10.5 10^3/uL (3.5-10.8)
[2019-09-14 09:49] LABS: BUN/Creatinine Ratio 27.8 (8-20); Calcium 8.9 mg/dL (8.6-10.3); EGFR African American 119.9 (>60); EGFR Non-African American 99.1 (>60); Magnesium 1.9 mg/dL (1.9-2.7); Phosphorus 3.8 mg/dL (2.5-5.0); Potassium 3.8 mmol/L (3.5-5.0)
--- NOTE | 2019-09-14 22:36 | DS ---
CC: Dr. Messer; Dr. Jean Stewart * DISCHARGE SUMMARY: DATE OF ADMISSION: 09/12/19 DATE OF DISCHARGE: 09/14/19 PRIMARY CARE PROVIDER: Dr. Jean Stewart. FINAL DISCHARGE DIAGNOSES: 1. Chronic obstructive pulmonary disease exacerbation. 2. History of esophageal cancer, on active chemotherapy. 3. Diabetes mellitus. HOSPITAL COURSE: The patient presented to [facility] on 09/12/19 with fairly sudden onset of shortness of breath started the day before his presentation to the ER around 11 o'clock in the morning. He started having some difficulty breathing, progressively got worse, did not improve with his underlying inhaler. He finally decided to come to the emergency room to be further evaluated. At that time, the patient had no significant fever, no recent travel, has no contact with any patient with known diagnosis of COVID- 19. Therefore, the patient was admitted for COPD exacerbation with known history of underlying COPD. He was started on IV Solu-Medrol, azithromycin and he was seen by me the following morning as my first encounter. He was seen and evaluated the next morning. He was verbally expressing significant improvement in symptomatology within 12-14 hours from his admission. On assessment, he still had some fine expiratory wheezes and he was still on IV Solu-Medrol. The patient wanted to be released the very next morning from his admission. Given his underlying COPD, esophageal cancer, active wheezing, IV Solu-Medrol, I elected the patient to remain an additional day to be reassessed and continue systemic steroid before transitioning to oral. He wanted to sign AMA. His arrived and was able to convince him to stay an additional day. Therefore, his Solu-Medrol was maintained, azithromycin continued. He was maintained on nebulizer treatment and his oxygen slowly was tapered down to 6 L at his baseline. He was seen and evaluated this morning today by me. He continued to express subjectively significant improvement. His oxygen is actually down to 3 L, therefore I did not see any reasoning not to transition him to oral prednisone, azithromycin and if he maintained a good saturation with his ambulation on oxygen, he was deemed stable for discharge. The patient's vital signs were monitored. His pulse oximetry was 100% on 3 L and at one time it was actually to be brought down to 1.5 L. Therefore, at this time, I deemed the patient stable medically to be released with discharge plan and recommendation outlined below home in stable condition. PHYSICAL EXAMINATION: Temperature 97.7, pulse 95, respiratory rate 18, satting 100% on 3 L nasal cannula at baseline, blood pressure 132/86. Generally, he is slightly underweight, appear older than stated age. Wearing his nasal cannula. Sitting at the ER bed in no apparent distress. Lungs: No significant rhonchi. Fine minimal expiratory wheezing at the end of expiratory phase. Cardiovascular : S1, S2. Tachycardic, but regular. Abdomen: Soft, nontender. Extremity: No edema. Positive clubbing. DIAGNOSTIC STUDIES/LAB DATA: CBC fairly unremarkable. No white count despite steroid. Platelet was 107 on admission, is up to 132. Chemistry unremarkable. Potassium was specifically 3.8, magnesium 1.9, sodium 139, BUN 22, creatinine 0.9. Influenza A and B negative. He had a chest x-ray, which did not show any acute infiltrate. Finding, stigmata of COPD. EKG: Sinus tachycardia at 110, MO 150, QRS 89, QTc 442. DISCHARGE MEDICATIONS: 1. Azithromycin 250 mg daily for 3 more days. 2. Glimepiride 1 mg, new prescription was provided for him to take while he is on prednisone and to hold if his a.m. blood sugar is 120. He was given 10 pills for 10 days only to match his prednisone tablet. 3. Prednisone 20 mg tablet, take 2 tabs for 2 days, 1 tab for 4 days, half tab for 4 days, and stop. 4. Continue omeprazole 20 daily. 5. Alpha-1 proteinase inhibitor 1000 intravenously weekly. 6. Metformin 1000 b.i.d. 7. Albuterol p.r.n. 8. Lisinopril 20 daily. 9. Atorvastatin 20 daily. 10. Anoro 62.5/25 one puff daily. 11. Zofran as needed. DISCHARGE INSTRUCTIONS: He was instructed to call his oncologist at [place] and notify that he was hospitalized with possible URI and discuss his next chemo cycle whether or not to be postponed. Verbally, he acknowledges instruction. Follow up with primary care in 1 to 2 weeks. He was strongly advised to reach out and follow up with Dr. Messer, his anesthesia assistant as an outpatient. Take all medications as prescribed. If he develops any symptoms of shortness of breath, cough, fever, to seek immediate medical attention. DISCHARGE DISPOSITION: Home. DISCHARGE CONDITION: Stable. [id number]/[facility] #: [id number] [place]
== END 2019-09-14 11:50 | disposition home or self-care (01) ==
LOC: ED 11:58 → MED 15:51
PROVIDERS: ADMIT Internal Medicine; ATTEND Internal Medicine
DX: J44.1 Chronic obstructive pulmonary disease with (acute) exacerbation (principal); C15.9 Malignant neoplasm of esophagus, unspecified; C78.7 Secondary malignant neoplasm of liver and intrahepatic bile duct; E88.01 Alpha-1-antitrypsin deficiency; E11.9 Type 2 diabetes mellitus without complications; K21.9 Gastro-esophageal reflux disease without esophagitis; I10 Essential (primary) hypertension; Z79.899 Other long term (current) drug therapy; Z79.84 Long term (current) use of oral hypoglycemic drugs; Z87.891 Personal history of nicotine dependence
CPT/HCPCS: 36415; 71045; 80048; 80053; 82803; 83605; 83735; 83880; 84100; 84484; 85025; 87040; 93005; 94640; 96365; 96367; 96375; 96376; 99285; A9270-GY; G0378; J0456; J0696; J1642; J2920; J2930; J7512